=== PATIENT | female | born 1975 | race Caucasian/White ===

== ENCOUNTER 2016-10-03 02:10 | Emergency (ER) | payer MEDICAID ==
[2016-03-15 02:38] VITALS: BMI 34.5
[~2016-10-03 02:10] MED LIST: ACETAMINOPHEN325 MG NG; ACETAMINOPHEN500 M1 PO; DEPAKOTE500 MG PO; DESERYL100 MG PO; ELAVIL75 MG PO; LISINOPRIL5 MG PO; NORCO 7.5/325 T1 TA1 PO; NUCYNTA50 MG PO; PLAVIX75 MG PO; ROBAXIN-750750 MG PO; SYNTHROID25 MCG PO; VITAMIN B-2100 MG PO; ZANAFLEX4 MG PO
== END 2016-10-03 03:29 | disposition home or self-care (01) ==
LOC: D.ER 02:10
DX: M54.5 Low back pain (principal); F17.200 Nicotine dependence, unspecified, uncomplicated

== ENCOUNTER 2016-11-07 16:57 | Emergency (ER) | payer MEDICAID ==
[2016-03-15 02:38] VITALS: BMI 34.5
[2016-11-07 18:55] LABS: APPEARANCE HAZY (CLEAR); BILIRUBIN NEGATIVE (NEGATIVE); COLOR YELLOW (YELLOW); GLUCOSE NEGATIVE (NEGATIVE); KETONE NEGATIVE (NEGATIVE); LEUKOCYTE ESTERASE 2+ (NEGATIVE); NITRITE NEGATIVE (NEGATIVE); PROTEIN NEGATIVE (NEGATIVE); SPECIFIC GRAVITY 1.005 (1.005-1.020); UROBILINOGEN NORMAL (NORMAL)
[2016-11-07 18:56] LABS: BACTERIA FEW /hpf (NONE SEEN); EPITHELIAL CELLS 0-5 /hpf (0-5); RED CELLS - URINE 0-5 /hpf (0-5)
[2016-11-07 19:11] LABS: BASOPHILS 0.3 % (0.0-2.0); EOSINOPHILS 1.2 % (0-7); HEMATOCRIT 29.6 % (36.0-48.0); IMMATURE GRANULOCYTES 0.2 % (0-5); LYMPHOCYTES 42.9 % (15-50); MCH 33.8 pg (26.0-34.0); MCHC 33.8 g/dL (31.0-37.0); MONOCYTES 11.6 % (2-11); NEUTROPHILS 43.8 % (40-80); RBC 2.96 10x6/uL (4.00-5.40); RDW 15.1 % (11.5-14.5); WBC 5.9 10x3/uL (4.8-10.8)
[2016-11-07 19:13] LABS: MEAN PLATELET VOLUME 13.1 fL (7.4-10.4); PLATELET COUNT 79 10x3/uL (130-400)
[2016-11-07 19:24] LABS: ALBUMIN 3.5 g/dL (3.4-5.0); ANION GAP 16.7 mmol/L (8-16); BILIRUBIN - TOTAL 0.24 mg/dL (0.2-1.3); CALCIUM 8.8 mg/dL (8.5-10.1); CARBON DIOXIDE 25.5 mmol/L (21.0-32.0); CREATININE - SERUM 0.9 mg/dL (0.6-1.3); POTASSIUM - SERUM 3.2 mmol/L (3.5-5.1); PROTEIN - SERUM 7.3 g/dL (6.4-8.2)
[2016-11-07 19:34] LABS: PLATELET ESTIMATE INCREASED
== END 2016-11-07 20:10 | disposition home or self-care (01) ==
LOC: D.ER 16:57
PROVIDERS: Emergency Medicine
DX: R10.9 Unspecified abdominal pain (principal); R11.10 Vomiting, unspecified; R51 Headache; N39.0 Urinary tract infection, site not specified

== ENCOUNTER 2017-01-04 17:50 | Emergency (ER) | payer MEDICAID ==
[2016-03-15 02:38] VITALS: BMI 34.5
[2017-01-04 20:31] LABS: BASOPHILS 0.3 % (0.0-2.0); EOSINOPHILS 1.9 % (0-7); HEMATOCRIT 33.1 % (36.0-48.0); HEMOGLOBIN 11.2 g/dL (12-16); IMMATURE GRANULOCYTES 0.1 % (0-5); LYMPHOCYTES 45.3 % (15-50); MCH 36.2 pg (26.0-34.0); MCHC 33.8 g/dL (31.0-37.0); MCV 107.1 fL (80.0-100.0); MEAN PLATELET VOLUME 11.3 fL (7.4-10.4); MONOCYTES 9.5 % (2-11); NEUTROPHILS 42.9 % (40-80); RBC 3.09 10x6/uL (4.00-5.40); RDW 15.7 % (11.5-14.5)
[2017-01-04 20:32] LABS: PLATELET COUNT 152 10x3/uL (130-400)
[2017-01-04 20:49] LABS: ALBUMIN 3.3 g/dL (3.4-5.0); ANION GAP 18.2 mmol/L (8-16); BILIRUBIN - TOTAL 0.27 mg/dL (0.2-1.3); CALCIUM 8.6 mg/dL (8.5-10.1); CARBON DIOXIDE 20.8 mmol/L (21.0-32.0); PROTEIN - SERUM 7.5 g/dL (6.4-8.2)
== END 2017-01-04 21:38 | disposition home or self-care (01) ==
LOC: D.ER 17:50
PROVIDERS: Nurse Practitioner Family
DX: R51 Headache (principal); E86.0 Dehydration; R11.10 Vomiting, unspecified; Z95.0 Presence of cardiac pacemaker

== ENCOUNTER 2017-01-24 14:31 | Emergency (ER) | payer MEDICAID ==
[2016-03-15 02:38] VITALS: BMI 34.5
== END 2017-01-24 16:22 | disposition home or self-care (01) ==
LOC: D.ER 14:31
DX: T22.00XA Burn of unspecified degree of shoulder and upper limb, except wrist and hand, unspecified site, initial encounter (principal); X08.8XXA Exposure to other specified smoke, fire and flames, initial encounter; Y93.89 Activity, other specified; Y92.89 Other specified places as the place of occurrence of the external cause; Z95.0 Presence of cardiac pacemaker

== ENCOUNTER 2017-02-07 00:20 | Observation (INO) | payer MEDICAID ==
[~2017-02-07] VITALS: Ht 162.6 cm; Wt 81.4 kg
--- NOTE | ~2017-02-07 | OP ---
PATIENT NAME: TIANA MAC MEDICAL RECORD: [id number] :75 LOCATION:D.M2 D.2120 ADMISSION DATE:02/07/17 SURGEON: RUBEN LÓPEZ MD DATE OF OPERATION: 02/07/2017 PROCEDURES: 1. Left heart catheterization. 2. Selective coronary angiography. 3. Left ventriculogram. PROCEDURE IN DETAIL: After informed consent was obtained and after detailed explanation of risks, benefits as well as alternative therapies, the patient elected to proceed with angiogram. The right femoral area was prepped and draped in normal sterile fashion. The right femoral artery was cannulated via modified Seldinger technique with placement of 5-Kyrgyz sheath. All catheters exchanged through this sheath. FINDINGS: Left ventriculogram was performed in standard 30-degree VILLEDA view, reveals good cardiac wall motion throughout all segments. Overall ejection fraction estimated at 60%. SELECTIVE CORONARY ANGIOGRAPHY: Left main, left anterior descending, left circumflex, and right coronary artery are all smooth-walled vessels with no angiographic evidence of coronary artery disease. OVERALL IMPRESSION: 1. No angiographic evidence of coronary artery disease. 2. Normal left heart pressures. 3. Normal left ventricular systolic function. Chest pain is noncardiac in etiology. No further cardiac workup needs to be ascertained. TRANSINT:[id number] Voice Confirmation ID: [id number] DOCUMENT ID: [id number] RUBEN LÓPEZ MD CC: [id number] DICTATION DATE: 02/07/17 1139 WET SUIT GLUER: 02/07/17 [address] [facility] [address] [place] [address]
--- NOTE | ~2017-02-07 | HEMODYNAMI ---
PATIENT:TIANA MAC MEDICAL RECORD: [id number] : 75 LOCATION:[facility].212 ADMISSION DATE: 02/07/17 Generatedon:02/07/201711:43 Patient name: TIANA MAC Patient #: [id number] SSN: D OB: 1975 Date of study: 02/07/2017 Page: Of Hemodynamic Procedure Report Patient Data Patient Demographics Procedure consent was obtained First Name: TIANA Gender: Female Last Name: ESTEFANIA : 1975 Middle Initial: L Age: 41 year(s) Patient #: [id number] Race: Additional ID: [id number] Contact details [address]: [address] [place] [address] State: [place] City: [place] Zip code: [address] Past Medical History Allergies Allergen Reaction Date Comments Reported Other allergy 02/07/2017 TRAMADOL, ROCEPHEN, TOPICAL PATCHES, MACROBID CIPRO, COMPAZINE Sulfa drugs 02/07/2017 Other allergy 02/07/2017 DILAUDID, FENTANYL Admission Admission Data Admission Date: 02/07/2017 Admission Time: 3:56 Room #: [facility] Height (in.): 64 BSA: 1.87 (m2) Height (cm.): 162.56 BMI: 30.81 (kg/m2) Weight (lbs.): 179.5 Weight (kg.): 81.42 Lab Results Lab Result Date: 02/07/2017 Lab Result Time: 0:00 Biochemistry Name Units Result Min Max BUN mg/dl 9 --(*---)-- 7 18 CK-MB ng/ml 0.1 --(*---)-- 0 3.6 Creatinine mg/dl 1.1 --(--*-)-- 0.6 1.3 Creatinine l 24 --(*---)-- 21 215 Kinase Troponin l ng/ml 0.017 --(-*--)-- 0 0.06 CBC Name Units Result Min Max Hemoglobin g/dl 12.6 -*(----)-- 13.5 17.5 Procedure Procedure Types Cath Procedure Diagnostic Procedure C [facility] w/Coronaries Procedure Description Procedure Date Procedure Date: 02/07/2017 Procedure Start Time: 11:27 Procedure End Time: 11:35 Procedure Staff Name Function Chetan Ferguson MD Performing Physician Hany Soto RT Scrub Merry Kendall RN Nurse Griffin Briggs RT Monitor Procedure Data Cath Procedure Fluoroscopy Diagnostic fluoroscopy Total fluoroscopy Time: 2.3 time: 2.3 min min Diagnostic fluoroscopy Total fluoroscopy dose: 280 dose: 280 mGy mGy Contrast Material Contrast Material Type Amount (ml) Isovue 300 44 Entry Location Entry Primary Successful Side Size Upsize Upsize Entry Closure Palencia ccessful Closure Location (Fr) 1 (Fr) 2 (Fr) Remarks Device Remarks Radial Right 6 Fr Mechanical artery Short Compression Diagnostic catheters Device Type Used For End Catheter Placement Terumo 5Fr Clinton 110cm LV Angiography catheter Procedure Complications No complications Procedure Medications Medication Administration Route Dosage Oxygen NC 2 l/min Heparin Flush Bag added to field 2 bags (1000units/500ml NS) Lidocaine 2% added to field 20 Radial Cocktail added to field 1 syringe (Verapomil 2mg/Nitro 400mcg/Heparin 1500units) Refer to Anesthesia Notes for Sedation Medications Radial Cocktail I.A. 1 syringe (Verapomil 2mg/Nitro 400mcg/Heparin 1500units) Hemodynamics Rest BSA: 1.87 (m2) HGB: 12.6 (g/dl) O2 Consumption: Estimated: 192.7 (ml/min) O2 Con sumption indexed: Estimated:103.05 (ml/min/m) Heart Rate: 75 (bpm) Snapshots Pre Cath Intra NCS Post Cath Vital Signs Time Heart Resp SPO2 NIBP (mmHg) Rhythm Pain Sedation Rate (ipm) (%) Status Level (bpm) 11:07:25 81 21 100 131/92(119) NSR 0 (11) 10(A) , No pain 11:11:39 69 20 100 137/84(103) NSR 0 (11) 10(A) , No pain 11:15:49 78 18 100 128/90(112) NSR 0 (11) 10(A) , No pain 11:19:59 79 17 100 128/88(106) NSR 0 (11) 10(A) , No pain 11:24:09 75 16 95 96/59(76) NSR 0 (11) 10(A) , No pain 11:28:14 73 16 97 86/57(68) NSR 0 (11) 6(A) , No pain 11:32:28 78 16 99 82/41(58) NSR 0 (11) 6(A) , No pain 11:37:19 79 16 98 79/56(67) NSR 0 (11) 6(A) , No pain 11:39:30 76 16 96 88/60(74) NSR 0 (11) 9(A) , No pain Medications Time Medication Route Dose Verified Delivered Reason Notes Effectiveness by by 11:10:04 Oxygen NC 2 l/min Chetan Sousa Per Marty Kendall RN physician 11:10:15 Heparin Flush added 2 bags Chetan Benton used for Bag to Marty Ferguson MD procedure (1000units/500ml field NS) 11:10:24 Lidocaine 2% added 20ml Chetan Benton used for to vial Marty Ferguson MD procedure field 11:10:32 Radial Cocktail added 1 Chetan Benton used for (Verapomil to syringe Marty Ferguson MD procedure 2mg/Nitro field 400mcg/Heparin 1500units) 11:10:48 Refer to Chetan Benton for sedation Anesthesia Notes Marty Ferguson MD for Sedation Medications 11:28:05 Radial Cocktail I.A. 1 Chetan Benton for (Verapomil syringe Marty Ferguson MD vasodilation 2mg/Nitro 400mcg/Heparin 1500units) Procedure Log Time Note 10:26:23 ACC Patient presents with Stable Angina CCS Anginal Class 1--Ordinary physical activity does not cause angina, angina occurs with strenuos, rapid, or prolonged activity.. 10:26:25 ACC Patient presents with Unstable Angina CCS Anginal Class 3--Marked limitation of physical activity, angina occurs with ordinary activity.. 10:26:27 Diagnostic Cath status Urgent 10:36:49 Griffin Briggs RT(R) sent for patient. Start room use. 10:36:51 Time tracking: Regular hours 10:36:55 Plan of Care:Hemodynamics will remain stable., Cardiac rhythm will remain stable., Comfort level will be maintained., Respiratory function will remain adequate., Patient/ family verbilizes understanding of procedure., Procedure tolerated without complication., Recovers from procedure without complications.. 10:59:18 Patient received from PCU to CCL 2 Alert and oriented. Tansferred to table in Supine position. 10:59:19 Warm blankets applied, and ricardo hugger turned on for patient comfort. 10:59:20 Correct patient and procedure confirmed by team. 10:59:21 Signed procedure consent form obtained from patient. 10:59:21 ECG and BP/O2 sat monitors applied to patient. 11:06:24 Vital chart was started 11:06:25 Baseline sample Acquired. 11:06:44 Rhythm: sinus rhythm 11:06:45 Full Disclosure recording started 11:07:04 H&P Date Dictated: 02/07/2017 Within 30 days and on chart.. 11:07:05 Pre-procedure instructions explained to patient. 11:07:06 Pre-op teaching completed and patient verbalized understanding. 11:07:08 Family in patients room. 11:07:09 Patient NPO since Midnight. 11:08:11 Patient allergic to Other allergyTRAMADOL, ROCEPHEN, TOPICAL PATCHES, MACROBID CIPRO, COMPAZINE 11:08:29 Patient allergic to Sulfa drugs 11:09:16 Patient allergic to Other allergyDILAUDID, FENTANYL 11:09:24 Is the patient allergic to Iodine/contrast media? No. 11:09:30 Is patient on blood thinner?No 11:09:31 Patient diabetic? No. 11:09:32 ----Pre-sedation anethsthesia assessment.---- 11:09:35 Previous problem with sedation/anesthesia? No ? 11:09:36 Snore? No 11:09:38 Sleep apnea? No 11:09:39 Deviated septum? No 11:09:40 Opens mouth fully? Yes 11:09:41 Sticks out tongue? Yes 11:09:43 Airway obstruction? No ? 11:09:50 Dentures? No NO TEETH 11:10:04 Oxygen 2 l/min NC was administered by Merry Kendall RN; Per physician; 11:10:15 Heparin Flush Bag (1000units/500ml NS) 2 bags added to field was administered by Chetan Ferguson MD; used for procedure; 11:10:24 Lidocaine 2% 20ml vial added to field was administered by Chetan Ferguson MD; used for procedure; 11:10:32 Radial Cocktail (Verapomil 2mg/Nitro 400mcg/Heparin 1500units) 1 syringe added to field was administered by Chetan Ferguson MD; used for procedure; 11:10:48 Refer to Anesthesia Notes for Sedation Medications was administered by Chetan Ferguson MD; for sedation; 11:14:41 Pre procedure: right dorsailis pedis pulse 2+ Normal; easily identifiable; not easily obliterated 11:14:45 Modified Maximo's test Ulnar > 7 seconds. 11:14:50 Patient pain scale 4/10 CP. 11:14:58 IV patent on arrival in Rt subclavian with 0.9% NaCl at 10ml/hr. 11:15:52 Lab Result : BUN 9 mg/dl 11:15:52 Lab Result : Creatinine 1.1 mg/dl 11:15:52 Lab Result : Creatinine Kinase 24 l 11:15:52 Lab Result : CK-MB 0.1 ng/ml 11:15:52 Lab Result : Troponin l 0.017 ng/ml 11:15:52 Lab Result : Hemoglobin 12.6 g/dl 11:15:56 Lab results completed and on chart. 11:16:01 Right Radial & Right Groin area was prepped with chlora-prep and draped in sterile fashion 11:16:02 Alarms reviewed by R. N. 11:16:02 Sharps counted by scrub and verified by R.N. 11:16:25 Use device set Radial Dx 11:16:26 Acist Syringe opened to sterile field. 11:16:26 Medline Cath Pack opened to sterile field. 11:16:26 Bag Decanter opened to sterile field. 11:16:27 Terumo 6Fr Slender Glidesheath opened to sterile field. 11:16:27 St Walker 260cm J .035 wire opened to sterile field. 11:16:28 Acist Hand Control opened to sterile field. 11:16:28 Acist Manifold opened to sterile field. 11:16:28 Tegaderm 4 x 4 opened to sterile field. 11:16:29 MBrace Wrist Support opened to sterile field. 11:20:30 Physician paged 11:20:54 Patient Height : 162.56 cm 11:20:59 Patient Weight : 81.42 kg 11::22 Zero performed for pressure channel P1 11::06 --------ALL STOP TIME OUT------ 11:24:07 Final Timeout: patient, procedure, and site verified with staff and physician. All members of the team are in agreement. 11:24:11 Right Radial site verified by team. 11:24:14 Physical assessment completed. ASA score P 2 - A patient with mild systemic disease as per Chetan Ferguson MD. 11::18 Sedation plan: IV Moderate Sedation Versed, Fentanyl 11::18 Procedure started. 11:27:35 Local anesthetic to right radial artery with Lidocaine 2% by Chetan Ferguson MD.INITIAL ACCESS ONLY 11:27:47 A 6 Fr Short sheath was inserted into the Right Radial artery 11:28:05 Radial Cocktail (Verapomil 2mg/Nitro 400mcg/Heparin 1500units) 1 syringe I.A. was administered by Chetan Ferguson MD; for vasodilation; 11::23 A Terumo 5Fr Clinton 110cm catheter was advanced over the wire and used for LV Angiography. 11:28:59 LV angiography performed. 11:29:01 LV gram done using VILLEDA 11:29:16 EF : 60 % 11::21 Injector settings: Ml/sec: 7, Volume: 15, 11:29:29 RCA angiography performed. 11:30:09 Catheter removed. 11:30:18 Medtronic Launcher 5Fr EBU 3.5 guide catheter opened to sterile field. 11:30:19 LCA angiography performed. 11:30:58 Terumo TR Band Standard opened to sterile field. 11:32:13 Catheter removed. 11:32:20 Contrast amount:Isovue 300 44ml. 11:32:26 Sheath removed intact; hemostasis achieved with Mechanical Compression to the Right Radial artery. 11:32:28 Procedure ended.(Physican Out) 11:32:39 Fluoroscopy time 02.30 minutes. 11:33:00 Flurop Dose total: 280 11:33:00 Fluoroscopy dose: 280 mGy 11:33:02 Sharps counted by scrub and verified by R.N. 11:33:04 TR band inflated with 10cc of air. 11:33:06 Insertion/operative site no bleeding no hematoma. 11:33:21 Post right radial artery:stable 11:33:58 Post Procedure Pulses reassessed and unchanged 11:34:00 Post procedure rhythm: sinus rhythm 11:34:01 Post procedure instruction explained to patient.Patient verbalizes understanding. 11:35:37 Procedure and supply charges have been captured, reviewed, submitted and are correct. 11:35:41 Procedure Complication : No complications 11:35:43 Vital chart was stopped 11:35:44 See physician's report for complete and final results. 11:35:50 Report given to PCU. 11:35:53 Patient transfered to PCU with Bed. 11:35:55 Procedure ended. 11:35:55 Full Disclosure recording stopped 11:35:59 End room use (Document Last) Device Usage Item Name Manufacture Quantity Catalog Hospital Part Current Minimal Lot# / Number Charge Number Stock Stock Serial# Code Acist Acist 1 [id number] [id number] 053456 093390 20 Syringe Medical Systems Inc Medline Cardinal 1 [id number] 64313 682203 5 Cath Pack Health Bag Microtek 1 2001S 638249 91949 943211 5 [employer] Terumo 6Fr Terumo 1 [id number] 405921 804289 774696 [address] Walker St Walker 1 122837 612370 234797 503627 30 260cm J .035 wire Acist Hand Acist 1 65274 478593 630043 865605 5 Control Medical Systems Inc Acist Acist 1 31505 202391 024925 709463 5 Manifold Medical Systems Inc Tegaderm 4 3M 1 1626W 819534 129764 563836 5 x 4 MBrace Advanced 1 140-0250-00 846502 62497 403593 5 Wrist Vascular Support Dynamics Terumo 5Fr Terumo 1 06-1696 069124 623364 288717 5 Clinton 110cm catheter Medtronic Medtronic 1 [id number] 815317 523157 721949 1 Launcher 5Fr EBU 3.5 guide catheter Terumo TR Terumo 1 [id number] 680038 551217 637323 40 Band Standard Signature Audit [place] Stage Time Signature Unsigned Intra-Procedure 02/07/2017 Griffin Briggs 11:43:34 AM RT(R) Signatures Monitor : Griffin Briggs RT Signature : Date : Time : [place] [id number] [place] [address]
--- NOTE | ~2017-02-07 | DS ---
PATIENT:TIANA MAC :75 MEDICAL RECORD: [id number] DISCHARGE SUMMARY ADMISSION DATE: 02/07/17 DISCHARGE DATE: 02/07/17 DATE OF SERVICE: 02/07/2017 DISCHARGE DIAGNOSES: 1. Chest pain of unknown etiology. 2. Normal cardiac catheterization. 3. Sick sinus syndrome. 4. Status post pacemaker. HOSPITAL COURSE: Ms. Mac presents with chest pain; however, cardiac catheterization is normal. Chest pain is noncardiac in etiology. Pacemaker is interrogated, no dysrhythmias were present. She was discharged home with a followup with [facility] within 6 months for reevaluation of the pacemaker. TRANSINT:[id number] Voice Confirmation ID: [id number] DOCUMENT ID: [id number] RUBEN LÓPEZ MD CC: [id number] DICTATION DATE: 02/07/17 1138 BROADCAST OPERATIONS MANAGER: 02/08/17 0200 DIS IN 02/07/17 [place] [id number] [place] [id number]
[2017-02-07 01:03] LABS: BASOPHILS 0.3 % (0-2); EOSINOPHILS 0.7 % (0-7); HEMATOCRIT 36.6 % (36.0-48.0); HEMOGLOBIN 12.6 g/dL (12-16); IMMATURE GRANULOCYTES 0.2 % (0-5); LYMPHOCYTES 37.5 % (15-50); MCH 35.5 pg (26.0-34.0); MCHC 34.4 g/dL (31.0-37.0); MCV 103.1 fL (80.0-100.0); MEAN PLATELET VOLUME 11.1 fL (7.4-10.4); MONOCYTES 9.5 % (2-11); NEUTROPHILS 51.8 % (40-80); PLATELET COUNT 285 10x3/uL (130-400); RBC 3.55 10x6/uL (4.00-5.40); RDW 12.9 % (11.5-14.5); WBC 9.3 10x3/uL (4.8-10.8)
[2017-02-07 01:18] LABS: ALBUMIN 3.2 g/dL (3.4-5.0); ALKALINE PHOSPHATASE 144 U/L (46-116); ALT (SGPT) 26 U/L (10-68); BILIRUBIN - TOTAL 0.23 mg/dL (0.2-1.3); CALC OSMOLALITY 281 mosm/kg (275-300); CALCIUM 8.6 mg/dL (8.5-10.1); CARBON DIOXIDE 26.5 mmol/L (21.0-32.0); CHLORIDE - SERUM 107 mmol/L (98-107); CREATININE - SERUM 1.1 mg/dL (0.6-1.3); GLUCOSE 100 mg/dL (74-106); POTASSIUM - SERUM 3.4 mmol/L (3.5-5.1); PROTEIN - SERUM 7.5 g/dL (6.4-8.2); SODIUM 142 mmol/L (136-145); UREA NITROGEN 9 mg/dL (7-18); eGFR NON AFRICAN AMERICAN 58 mL/min (90-120)
[2017-02-07 01:27] LABS: CHOL - HDL RATIO 4.2 ratio (2.3-4.1); CHOLESTEROL, TOTAL 181 mg/dL (0-200); CKMB 0.2 U/L (0.0-3.6); CREATINE KINASE 23 UL (21-215); HDL CHOLESTEROL 43 mg/dL (32-96); LDL CHOLESTEROL 99 mg/dL (0-100); LDL-HDL RATIO 2.3 ratio (1.5-3.5); MAGNESIUM - SERUM 1.9 mg/dL (1.8-2.4); TRIGLYCERIDE 197 mg/dL (30-200)
[2017-02-07 01:30] LABS: TROPONIN-I < 0.017 ng/mL (0.000-0.060)
[2017-02-07 04:36] VITALS: BP 130/87; Ht 162.6 cm; Wt 81.4 kg
[2017-02-07] MEDS ORDERED: LOPRESSOR25 MG PO (04:43)
[2017-02-07] MEDS ORDERED: ATARAX 25 MG TA25 MG PO (04:45)
[2017-02-07 05:01] VITALS: BP 130/87
[2017-02-07 05:46] LABS: CKMB 0.1 U/L (0.0-3.6); CREATINE KINASE 24 UL (21-215); TROPONIN-I < 0.017 ng/mL (0.000-0.060)
[2017-02-07 07:53] VITALS: BP 119/86
[2017-02-07 09:55] LABS: BASOPHILS 0.4 % (0-2); EOSINOPHILS 1.3 % (0-7); HEMATOCRIT 36.1 % (36.0-48.0); IMMATURE GRANULOCYTES 0.1 % (0-5); LYMPHOCYTES 46.5 % (15-50); MCH 34.8 pg (26.0-34.0); MCHC 33.2 g/dL (31.0-37.0); MCV 104.6 fL (80.0-100.0); MEAN PLATELET VOLUME 11.5 fL (7.4-10.4); MONOCYTES 9.7 % (2-11); RBC 3.45 10x6/uL (4.00-5.40); RDW 13.2 % (11.5-14.5); WBC 8.4 10x3/uL (4.8-10.8)
[2017-02-07 09:59] LABS: PLATELET COUNT 224 10x3/uL (130-400)
[2017-02-07 10:31] LABS: CALC OSMOLALITY 283 mosm/kg (275-300); CALCIUM 8.9 mg/dL (8.5-10.1); CARBON DIOXIDE 24.7 mmol/L (21.0-32.0); CHLORIDE - SERUM 109 mmol/L (98-107); CKMB 0.2 U/L (0.0-3.6); CREATINE KINASE 24 UL (21-215); GLUCOSE 101 mg/dL (74-106); POTASSIUM - SERUM 3.8 mmol/L (3.5-5.1); SODIUM 143 mmol/L (136-145); TROPONIN-I < 0.017 ng/mL (0.000-0.060); UREA NITROGEN 11 mg/dL (7-18); eGFR NON AFRICAN AMERICAN 65 mL/min (90-120)
--- NOTE | 2017-02-07 11:07 | NUR ---
LEAVING FOR REINFORCED STEEL PLACING SUPERVISOR BY BED.
--- NOTE | 2017-02-07 11:53 | NUR ---
BACK FROM REFURBISH TECHNICIAN. RIGHT WRST STABLE WITH TR BAND INTACT. METRONICS AT BS ASSESING PACEMAKER. WILL CONT. PLAN OF CARE.
--- NOTE | 2017-02-07 14:38 | NUR ---
FEMSTOP DCD WITHOUT BLEEDING OR HEMATOMA NOTED.
--- NOTE | 2017-02-07 14:42 | NUR ---
IV AND TELEMETRY DCD. DC PLANS GIVEN. UNDERSTANDING VOICED. ESCORTED TO CAR BY W/C.
== END 2017-02-07 14:50 | disposition home or self-care (01) ==
LOC: D.ER 00:20 → D.M2 03:56 → OBSVTIME 03:56 → D.M2 14:50
PROVIDERS: Emergency Medicine; ADMIT Internal Medicine Interventional Cardiology
DX: R07.89 Other chest pain (principal); I10 Essential (primary) hypertension; Z95.0 Presence of cardiac pacemaker; K74.60 Unspecified cirrhosis of liver; Z87.891 Personal history of nicotine dependence

== ENCOUNTER 2017-03-14 17:18 | Emergency (ER) | payer MEDICAID ==
[2017-02-07 04:36] VITALS: BMI 30.8
[~2017-03-14 17:18] MED LIST changes: +ATARAX 25 MG TA25 MG PO; +LOPRESSOR25 MG PO
[2017-03-14 20:31] LABS: APPEARANCE CLEAR (CLEAR); BILIRUBIN NEGATIVE (NEGATIVE); COLOR YELLOW (YELLOW); GLUCOSE NEGATIVE (NEGATIVE); KETONE NEGATIVE (NEGATIVE); LEUKOCYTE ESTERASE 1+ (NEGATIVE); NITRITE NEGATIVE (NEGATIVE); PROTEIN NEGATIVE (NEGATIVE); UROBILINOGEN NORMAL (NORMAL)
[2017-03-14 20:34] LABS: BACTERIA MODERATE /hpf (NONE SEEN); RED CELLS - URINE 0-5 /hpf (0-5)
[2017-03-14 22:05] LABS: BASOPHILS 0.2 % (0-2); HEMATOCRIT 41.4 % (36.0-48.0); HEMOGLOBIN 14.1 g/dL (12-16); IMMATURE GRANULOCYTES 0.6 % (0-5); LYMPHOCYTES 33.7 % (15-50); MCH 33.8 pg (26.0-34.0); MCHC 34.1 g/dL (31.0-37.0); MCV 99.3 fL (80.0-100.0); MONOCYTES 8.2 % (2-11); NEUTROPHILS 56.3 % (40-80); RBC 4.17 10x6/uL (4.00-5.40); RDW 13.5 % (11.5-14.5); WBC 12.5 10x3/uL (4.8-10.8)
[2017-03-14 22:06] LABS: PLATELET COUNT 156 10x3/uL (130-400)
[2017-03-14 22:26] LABS: ALBUMIN 3.8 g/dL (3.4-5.0); ALKALINE PHOSPHATASE 110 U/L (46-116); ALT (SGPT) 30 U/L (10-68); BILIRUBIN - TOTAL 0.35 mg/dL (0.2-1.3); CALC OSMOLALITY 288 mosm/kg (275-300); CALCIUM 9.8 mg/dL (8.5-10.1); CARBON DIOXIDE 22.4 mmol/L (21.0-32.0); CHLORIDE - SERUM 110 mmol/L (98-107); CREATININE - SERUM 0.7 mg/dL (0.6-1.3); GLUCOSE 84 mg/dL (74-106); POTASSIUM - SERUM 4.9 mmol/L (3.5-5.1); PROTEIN - SERUM 8.7 g/dL (6.4-8.2); SODIUM 145 mmol/L (136-145); UREA NITROGEN 14 mg/dL (7-18); eGFR NON AFRICAN AMERICAN > 90 mL/min (90-120)
== END 2017-03-14 23:39 | disposition home or self-care (01) ==
LOC: D.ER 17:18
PROVIDERS: Emergency Medicine
DX: N39.0 Urinary tract infection, site not specified (principal)

== ENCOUNTER 2017-03-19 22:17 | Emergency (ER) | payer MEDICAID ==
[2017-02-07 04:36] VITALS: BMI 30.8
[2017-03-19 22:54] LABS: BASOPHILS 0.2 % (0-2); EOSINOPHILS 0.8 % (0-7); HEMATOCRIT 47.6 % (36.0-48.0); HEMOGLOBIN 15.6 g/dL (12-16); IMMATURE GRANULOCYTES 0.3 % (0-5); LYMPHOCYTES 29.9 % (15-50); MCH 33.4 pg (26.0-34.0); MCHC 32.8 g/dL (31.0-37.0); MCV 101.9 fL (80.0-100.0); MEAN PLATELET VOLUME 12.3 fL (7.4-10.4); MONOCYTES 5.4 % (2-11); NEUTROPHILS 63.4 % (40-80); PLATELET COUNT 215 10x3/uL (130-400); RBC 4.67 10x6/uL (4.00-5.40); RDW 13.5 % (11.5-14.5); WBC 11.9 10x3/uL (4.8-10.8)
[2017-03-19 22:56] LABS: ANION GAP 15.8 mmol/L (8-16); BILIRUBIN - TOTAL 0.25 mg/dL (0.2-1.3); CALCIUM 9.8 mg/dL (8.5-10.1); CREATININE - SERUM 0.9 mg/dL (0.6-1.3); POTASSIUM - SERUM 3.8 mmol/L (3.5-5.1); PROTEIN - SERUM 9.3 g/dL (6.4-8.2)
[2017-03-20 00:19] LABS: APPEARANCE CLEAR (CLEAR); BILIRUBIN NEGATIVE (NEGATIVE); COLOR YELLOW (YELLOW); GLUCOSE NEGATIVE (NEGATIVE); KETONE NEGATIVE (NEGATIVE); LEUKOCYTE ESTERASE NEGATIVE (NEGATIVE); NITRITE NEGATIVE (NEGATIVE); PROTEIN TRACE mg/dL (NEGATIVE); SPECIFIC GRAVITY 1.015 (1.005-1.020); UROBILINOGEN NORMAL (NORMAL)
[2017-03-20 00:20] LABS: BACTERIA NONE SEEN /hpf (NONE SEEN); EPITHELIAL CELLS 0-5 /hpf (0-5); RED CELLS - URINE 0-5 /hpf (0-5); WHITE CELLS - URINE 0-5 /hpf (0-5)
== END 2017-03-20 00:45 | disposition home or self-care (01) ==
LOC: D.ER 22:17
PROVIDERS: Emergency Medicine
DX: R10.9 Unspecified abdominal pain (principal)

== ENCOUNTER 2017-05-29 20:54 | Emergency (ER) | payer MEDICAID ==
[2017-02-07 04:36] VITALS: BMI 30.8
[2017-05-29 21:59] LABS: BASOPHILS 0.3 % (0-2); EOSINOPHILS 0.4 % (0-7); HEMATOCRIT 42.7 % (36.0-48.0); HEMOGLOBIN 15.1 g/dL (12-16); IMMATURE GRANULOCYTES 0.3 % (0-5); LYMPHOCYTES 34.8 % (15-50); MCH 33.5 pg (26.0-34.0); MCHC 35.4 g/dL (31.0-37.0); MCV 94.7 fL (80.0-100.0); MONOCYTES 9.8 % (2-11); NEUTROPHILS 54.4 % (40-80); RBC 4.51 10x6/uL (4.00-5.40); RDW 13.7 % (11.5-14.5); WBC 10.1 10x3/uL (4.8-10.8)
[2017-05-29 22:06] LABS: PLATELET COUNT 294 10x3/uL (130-400)
[2017-05-29 22:15] LABS: ALBUMIN 3.8 g/dL (3.4-5.0); BILIRUBIN - TOTAL 0.2 mg/dL (0.2-1.3); CALCIUM 9.6 mg/dL (8.5-10.1); CARBON DIOXIDE 24.8 mmol/L (21.0-32.0); CREATININE - SERUM 1.1 mg/dL (0.6-1.3); PROTEIN - SERUM 8.4 g/dL (6.4-8.2)
[2017-05-29 22:23] LABS: POTASSIUM - SERUM 2.8 mmol/L (3.5-5.1)
[2017-05-29 22:23] LABS: APPEARANCE HAZY (CLEAR); BILIRUBIN NEGATIVE (NEGATIVE); COLOR YELLOW (YELLOW); GLUCOSE NEGATIVE (NEGATIVE); KETONE MODERATE mg/dL (NEGATIVE); LEUKOCYTE ESTERASE 2+ (NEGATIVE); NITRITE POSITIVE (NEGATIVE); PROTEIN 1+ mg/dL (NEGATIVE); UROBILINOGEN NORMAL (NORMAL)
[2017-05-29 22:24] LABS: BACTERIA MANY /hpf (NONE SEEN); EPITHELIAL CELLS 0-5 /hpf (0-5); RED CELLS - URINE 0-5 /hpf (0-5); WHITE CELLS - URINE >50 /hpf (0-5)
== END 2017-05-29 23:52 | disposition home or self-care (01) ==
LOC: D.ER 20:54
PROVIDERS: Nurse Practitioner Acute Care
DX: N39.0 Urinary tract infection, site not specified (principal); E87.6 Hypokalemia

== ENCOUNTER → 2017-06-04 13:20 | Outpatient (CLI) | payer MEDICAID ==
[2017-02-07 04:36] VITALS: BMI 30.8
[2017-06-04 13:52] LABS: INR 0.82 (0.85-1.17); PROTIME 11.1 SECONDS (11.6-15.0)
== END | disposition home or self-care (01) ==
LOC: D.LAB 13:20
PROVIDERS: Neurological Surgery
DX: D69.9 Hemorrhagic condition, unspecified (principal)

== ENCOUNTER 2017-07-04 08:57 | Emergency (ER) | payer MEDICAID ==
[2017-02-07 04:36] VITALS: BMI 30.8
[2017-07-04 09:36] LABS: BASOPHILS 0.2 % (0-2); EOSINOPHILS 0 % (0-7); HEMATOCRIT 41.9 % (36.0-48.0); HEMOGLOBIN 14.9 g/dL (12-16); IMMATURE GRANULOCYTES 1.1 % (0-5); LYMPHOCYTES 28.2 % (15-50); MCH 32.9 pg (26.0-34.0); MCHC 35.6 g/dL (31.0-37.0); MCV 92.5 fL (80.0-100.0); MEAN PLATELET VOLUME 10.1 fL (7.4-10.4); MONOCYTES 6.4 % (2-11); NEUTROPHILS 64.1 % (40-80); RBC 4.53 10x6/uL (4.00-5.40); RDW 13.9 % (11.5-14.5); WBC 17.8 10x3/uL (4.8-10.8)
[2017-07-04 09:37] LABS: PLATELET COUNT 457 10x3/uL (130-400)
[2017-07-04 09:55] LABS: ALBUMIN 3.7 g/dL (3.4-5.0); ANION GAP 21.3 mmol/L (8-16); BILIRUBIN - TOTAL 0.33 mg/dL (0.2-1.3); CALCIUM 9.8 mg/dL (8.5-10.1); CARBON DIOXIDE 17.3 mmol/L (21.0-32.0); CREATININE - SERUM 1.5 mg/dL (0.6-1.3); PROTEIN - SERUM 8.1 g/dL (6.4-8.2)
[2017-07-04 10:00] LABS: POTASSIUM - SERUM 2.6 mmol/L (3.5-5.1)
[2017-07-04 10:06] LABS: APPEARANCE CLEAR (CLEAR); BILIRUBIN NEGATIVE (NEGATIVE); COLOR DK YELLOW (YELLOW); GLUCOSE NEGATIVE (NEGATIVE); KETONE NEGATIVE (NEGATIVE); NITRITE NEGATIVE (NEGATIVE); PROTEIN TRACE mg/dL (NEGATIVE); UROBILINOGEN NORMAL (NORMAL)
[2017-07-04 10:09] LABS: BACTERIA FEW /hpf (NONE SEEN); EPITHELIAL CELLS 0-5 /hpf (0-5); MUCUS <1+ /lpf (NONE SEEN); RED CELLS - URINE 0-5 /hpf (0-5)
== END 2017-07-04 13:06 | disposition home or self-care (01) ==
LOC: D.ER 08:57
PROVIDERS: Emergency Medicine
DX: E86.0 Dehydration (principal); R11.10 Vomiting, unspecified

== ENCOUNTER 2017-07-23 20:35 | Emergency (ER) | payer MEDICAID ==
[2017-02-07 04:36] VITALS: BMI 30.8
[2017-07-23 22:11] LABS: BASOPHILS 0.2 % (0-2); HEMATOCRIT 43.8 % (36.0-48.0); HEMOGLOBIN 14.5 g/dL (12-16); IMMATURE GRANULOCYTES 0.2 % (0-5); LYMPHOCYTES 41.5 % (15-50); MCH 32.6 pg (26.0-34.0); MCHC 33.1 g/dL (31.0-37.0); MCV 98.4 fL (80.0-100.0); MEAN PLATELET VOLUME 11.5 fL (7.4-10.4); MONOCYTES 7.2 % (2-11); NEUTROPHILS 49.9 % (40-80); RBC 4.45 10x6/uL (4.00-5.40); RDW 14.3 % (11.5-14.5); WBC 8.2 10x3/uL (4.8-10.8)
[2017-07-23 22:13] LABS: PLATELET COUNT 230 10x3/uL (130-400)
[2017-07-23 23:49] LABS: ALBUMIN 3.9 g/dL (3.4-5.0); ALKALINE PHOSPHATASE 167 U/L (46-116); ALT (SGPT) 39 U/L (10-68); AMYLASE - SERUM 50 U/L (25-115); CALC OSMOLALITY 281 mosm/kg (275-300); CALCIUM 9.6 mg/dL (8.5-10.1); CARBON DIOXIDE 21.2 mmol/L (21.0-32.0); CHLORIDE - SERUM 106 mmol/L (98-107); CREATININE - SERUM 0.7 mg/dL (0.6-1.3); GLUCOSE 100 mg/dL (74-106); LIPASE 250 U/L (73-393); POTASSIUM - SERUM 3.9 mmol/L (3.5-5.1); PROTEIN - SERUM 7.8 g/dL (6.4-8.2); SODIUM 142 mmol/L (136-145); eGFR NON AFRICAN AMERICAN > 90 mL/min (90-120)
[2017-07-23 23:54] LABS: UREA NITROGEN 9 mg/dL (7-18)
[2017-07-24 00:05] LABS: APPEARANCE HAZY (CLEAR); BILIRUBIN NEGATIVE (NEGATIVE); COLOR YELLOW (YELLOW); GLUCOSE NEGATIVE (NEGATIVE); KETONE SMALL mg/dL (NEGATIVE); NITRITE NEGATIVE (NEGATIVE); PROTEIN 1+ mg/dL (NEGATIVE); SPECIFIC GRAVITY 1.005 (1.005-1.020); UROBILINOGEN NORMAL (NORMAL)
[2017-07-24 00:06] LABS: BACTERIA MANY /hpf (NONE SEEN); EPITHELIAL CELLS 0-5 /hpf (0-5); MUCUS <1+ /lpf (NONE SEEN)
[2017-07-24 00:07] LABS: UDS - AMPHET NEGATIVE QUAL (NEGATIVE); UDS - BARB NEGATIVE QUAL (NEGATIVE); UDS - BENZO NEGATIVE QUAL (NEGATIVE); UDS - COCAINE NEGATIVE QUAL (NEGATIVE); UDS - OPIATE POSITIVE QUAL (NEGATIVE); UDS - PCP NEGATIVE QUAL (NEGATIVE); UDS - THC NEGATIVE QUAL (NEGATIVE)
== END 2017-07-24 01:22 | disposition home or self-care (01) ==
LOC: D.ER 20:35
PROVIDERS: Emergency Medicine; Nurse Practitioner Family
DX: R11.2 Nausea with vomiting, unspecified (principal); R19.7 Diarrhea, unspecified; M32.9 Systemic lupus erythematosus, unspecified; G40.909 Epilepsy, unspecified, not intractable, without status epilepticus; B19.20 Unspecified viral hepatitis C without hepatic coma; F17.200 Nicotine dependence, unspecified, uncomplicated; I10 Essential (primary) hypertension

== ENCOUNTER 2017-08-07 22:37 | Emergency (ER) | payer MEDICAID ==
[2017-02-07 04:36] VITALS: BMI 30.8
[2017-08-07 23:31] LABS: HEMOGLOBIN 13.6 g/dL (12-16); LYMPHOCYTES 40.1 % (15-50); MCH 32.6 pg (26.0-34.0); MCV 95.9 fL (80.0-100.0); NEUTROPHILS 56.4 % (40-80); PLATELET COUNT 237 10x3/uL (130-400); RBC 4.17 10x6/uL (4.00-5.40); RDW 13.4 % (11.5-14.5); WBC 10.2 10x3/uL (4.8-10.8)
[2017-08-07 23:46] LABS: ALBUMIN 3.7 g/dL (3.4-5.0); ALKALINE PHOSPHATASE 125 U/L (46-116); ALT (SGPT) 15 U/L (10-68); BILIRUBIN - TOTAL 0.32 mg/dL (0.2-1.3); CALC OSMOLALITY 281 mosm/kg (275-300); CALCIUM 9.1 mg/dL (8.5-10.1); CARBON DIOXIDE 27.8 mmol/L (21.0-32.0); CHLORIDE - SERUM 105 mmol/L (98-107); CREATININE - SERUM 0.9 mg/dL (0.6-1.3); GLUCOSE 98 mg/dL (74-106); POTASSIUM - SERUM 4.7 mmol/L (3.5-5.1); PROTEIN - SERUM 8.4 g/dL (6.4-8.2); SODIUM 142 mmol/L (136-145); UREA NITROGEN 11 mg/dL (7-18); eGFR NON AFRICAN AMERICAN 73 mL/min (90-120)
[2017-08-07 23:57] LABS: CHOLESTEROL, TOTAL 234 mg/dL (0-200); CREATINE KINASE 89 UL (21-215); HDL CHOLESTEROL 78 mg/dL (32-96); LDL CHOLESTEROL 129 mg/dL (0-100); LDL-HDL RATIO 1.7 ratio (1.5-3.5); TRIGLYCERIDE 137 mg/dL (30-200)
[2017-08-08 00:02] LABS: TROPONIN-I < 0.017 ng/mL (0.000-0.060)
== END 2017-08-08 04:50 | disposition home or self-care (01) ==
LOC: D.ER 22:37
PROVIDERS: Emergency Medicine
DX: R07.9 Chest pain, unspecified (principal); B19.20 Unspecified viral hepatitis C without hepatic coma; M32.9 Systemic lupus erythematosus, unspecified; I10 Essential (primary) hypertension

== ENCOUNTER 2017-10-18 00:39 | Emergency (ER) | payer MEDICAID ==
[2017-02-07 04:36] VITALS: BMI 30.8
[2017-10-18 01:35] LABS: BASOPHILS 0.1 % (0-2); EOSINOPHILS 1.5 % (0-7); HEMATOCRIT 38.3 % (36.0-48.0); HEMOGLOBIN 12.8 g/dL (12-16); IMMATURE GRANULOCYTES 0.3 % (0-5); MCH 31.1 pg (26.0-34.0); MCHC 33.4 g/dL (31.0-37.0); MCV 93.2 fL (80.0-100.0); MEAN PLATELET VOLUME 11.7 fL (7.4-10.4); MONOCYTES 9.2 % (2-11); NEUTROPHILS 56.9 % (40-80); RBC 4.11 10x6/uL (4.00-5.40); RDW 13.3 % (11.5-14.5); WBC 9.2 10x3/uL (4.8-10.8)
[2017-10-18 01:40] LABS: PLATELET COUNT 185 10x3/uL (130-400)
[2017-10-18 01:47] LABS: ALBUMIN 3.5 g/dL (3.4-5.0); ALKALINE PHOSPHATASE 111 U/L (46-116); ALT (SGPT) 28 U/L (10-68); BILIRUBIN - TOTAL 0.19 mg/dL (0.2-1.3); CALC OSMOLALITY 281 mosm/kg (275-300); CALCIUM 8.8 mg/dL (8.5-10.1); CARBON DIOXIDE 27.1 mmol/L (21.0-32.0); CHLORIDE - SERUM 103 mmol/L (98-107); CREATININE - SERUM 0.9 mg/dL (0.6-1.3); GLUCOSE 109 mg/dL (74-106); POTASSIUM - SERUM 4.1 mmol/L (3.5-5.1); PROTEIN - SERUM 7.9 g/dL (6.4-8.2); SODIUM 141 mmol/L (136-145); UREA NITROGEN 13 mg/dL (7-18); eGFR NON AFRICAN AMERICAN 73 mL/min (90-120)
[2017-10-18 01:57] LABS: CHOL - HDL RATIO 3.8 ratio (2.3-4.1); CHOLESTEROL, TOTAL 218 mg/dL (0-200); CKMB 0.5 U/L (0.0-3.6); CREATINE KINASE 63 UL (21-215); HDL CHOLESTEROL 58 mg/dL (32-96); LDL CHOLESTEROL 133 mg/dL (0-100); LDL-HDL RATIO 2.3 ratio (1.5-3.5); TRIGLYCERIDE 135 mg/dL (30-200); TROPONIN-I < 0.017 ng/mL (0.000-0.060)
== END 2017-10-18 03:05 | disposition home or self-care (01) ==
LOC: D.ER 00:39
PROVIDERS: Emergency Medicine
DX: R09.1 Pleurisy (principal); M32.9 Systemic lupus erythematosus, unspecified; I10 Essential (primary) hypertension

== ENCOUNTER 2018-01-12 21:47 | Emergency (ER) | payer MEDICAID ==
[2017-02-07 04:36] VITALS: BMI 30.8
[2018-01-12 22:08] LABS: APPEARANCE CLEAR (CLEAR); BILIRUBIN NEGATIVE (NEGATIVE); COLOR STRAW (YELLOW); GLUCOSE NEGATIVE (NEGATIVE); KETONE NEGATIVE (NEGATIVE); NITRITE NEGATIVE (NEGATIVE); PROTEIN NEGATIVE (NEGATIVE); SPECIFIC GRAVITY 1.005 (1.005-1.020); UROBILINOGEN NORMAL (NORMAL)
[2018-01-12 22:10] LABS: WHITE CELLS - URINE 0-5 /hpf (0-5)
[2018-01-12 22:11] LABS: RED CELLS - URINE 0-5 /hpf (0-5)
[2018-01-12 22:12] LABS: BACTERIA FEW /hpf (NONE SEEN)
[2018-01-12 22:15] LABS: BASOPHILS 0.3 % (0-2); HEMOGLOBIN 13.4 g/dL (12-16); IMMATURE GRANULOCYTES 0.1 % (0-5); LYMPHOCYTES 41.3 % (15-50); MCH 30.5 pg (26.0-34.0); MCHC 33.5 g/dL (31.0-37.0); MCV 90.9 fL (80.0-100.0); MEAN PLATELET VOLUME 10.5 fL (7.4-10.4); MONOCYTES 5.5 % (2-11); NEUTROPHILS 50.8 % (40-80); PLATELET COUNT 231 10x3/uL (130-400); RDW 12.7 % (11.5-14.5); WBC 7.1 10x3/uL (4.8-10.8)
[2018-01-12 22:28] LABS: ALBUMIN 3.5 g/dL (3.4-5.0); ANION GAP 11.4 mmol/L (8-16); BILIRUBIN - TOTAL 0.2 mg/dL (0.2-1.3); CALCIUM 8.4 mg/dL (8.5-10.1); CARBON DIOXIDE 26.2 mmol/L (21.0-32.0); POTASSIUM - SERUM 3.6 mmol/L (3.5-5.1); PROTEIN - SERUM 7.6 g/dL (6.4-8.2)
[2018-01-12 22:40] LABS: HCG SERUM NEGATIVE (NEGATIVE)
== END 2018-01-13 00:23 | disposition home or self-care (01) ==
LOC: D.ER 21:47
PROVIDERS: Emergency Medicine
DX: R10.9 Unspecified abdominal pain (principal); R11.10 Vomiting, unspecified; I10 Essential (primary) hypertension; G40.909 Epilepsy, unspecified, not intractable, without status epilepticus; F17.200 Nicotine dependence, unspecified, uncomplicated

== ENCOUNTER 2018-02-16 01:01 | Emergency (ER) | payer MEDICAID ==
[2017-02-07 04:36] VITALS: BMI 30.8
[2018-02-16 01:35] LABS: APPEARANCE HAZY (CLEAR); BACTERIA NONE SEEN /hpf (NONE SEEN); BILIRUBIN NEGATIVE (NEGATIVE); COLOR YELLOW (YELLOW); EPITHELIAL CELLS NSEEN /hpf (0-5); GLUCOSE NEGATIVE (NEGATIVE); KETONE NEGATIVE (NEGATIVE); NITRITE NEGATIVE (NEGATIVE); PROTEIN NEGATIVE (NEGATIVE); RED CELLS - URINE 0-5 /hpf (0-5); SPECIFIC GRAVITY 1.015 (1.005-1.020); UROBILINOGEN NORMAL (NORMAL)
[2018-02-16 02:30] LABS: BASOPHILS 0.4 % (0-2); EOSINOPHILS 1.3 % (0-7); HEMATOCRIT 43.5 % (36.0-48.0); HEMOGLOBIN 14.9 g/dL (12-16); IMMATURE GRANULOCYTES 0.1 % (0-5); LYMPHOCYTES 33.6 % (15-50); MCH 30.6 pg (26.0-34.0); MCHC 34.3 g/dL (31.0-37.0); MCV 89.3 fL (80.0-100.0); MEAN PLATELET VOLUME 10.9 fL (7.4-10.4); MONOCYTES 12.1 % (2-11); NEUTROPHILS 52.5 % (40-80); RBC 4.87 10x6/uL (4.00-5.40); WBC 7.2 10x3/uL (4.8-10.8)
[2018-02-16 02:38] LABS: CALC OSMOLALITY 279 mosm/kg (275-300); CHLORIDE - SERUM 106 mmol/L (98-107); CREATININE - SERUM 0.7 mg/dL (0.6-1.3); GLUCOSE 103 mg/dL (74-106); PLATELET COUNT 168 10x3/uL (130-400); POTASSIUM - SERUM 4.2 mmol/L (3.5-5.1); SODIUM 141 mmol/L (136-145); UREA NITROGEN 9 mg/dL (7-18); eGFR NON AFRICAN AMERICAN > 90 mL/min (90-120)
== END 2018-02-16 03:39 | disposition home or self-care (01) ==
LOC: D.ER 01:01
PROVIDERS: Family Medicine
DX: N39.0 Urinary tract infection, site not specified (principal); I10 Essential (primary) hypertension; G40.909 Epilepsy, unspecified, not intractable, without status epilepticus

== ENCOUNTER → 2018-03-26 07:33 | Outpatient (CLI) | payer MEDICAID ==
[2017-02-07 04:36] VITALS: BMI 30.8
[~2018-03-26 07:33] MED LIST changes: +ANTIVERT12.5 MG PO; +CARDIZEM CD120 MG PO; +CIPRO250 MG PO; +DEPAKOTE ER500 MG PO; -DESERYL100 MG PO; +FIORICET-COD 51 EACH PO; +FUROSEMIDE20 MG PO; +PERCOCET 10/3251 TA1 PO; +TRAZODONE HCL150 MG PO; +TREXIMET 85-5001 TAB PO; +ULTRACET TABLET1 TAB PO; +VISTARIL50 MG PO; +ZOFRAN ODT4 MG/UDTAB PO
== END | disposition home or self-care (01) ==
LOC: D.RAD 07:33
DX: M25.511 Pain in right shoulder (principal)

== ENCOUNTER 2018-04-13 23:47 | Emergency (ER) | payer MEDICAID ==
[~2018-04-13] VITALS: Ht 162.6 cm; Wt 105.2 kg
[~2018-04-13 23:47] MED LIST changes: -ANTIVERT12.5 MG PO; -CARDIZEM CD120 MG PO; -CIPRO250 MG PO; -FIORICET-COD 51 EACH PO; -FUROSEMIDE20 MG PO; -PERCOCET 10/3251 TA1 PO; -TREXIMET 85-5001 TAB PO; -ULTRACET TABLET1 TAB PO; -VISTARIL50 MG PO; -ZOFRAN ODT4 MG/UDTAB PO
[2018-04-14 00:07] VITALS: Ht 162.6 cm; Wt 105.2 kg
[2018-04-14] MEDS ORDERED: ZANAFLEX4 MG PO (00:09)
[2018-04-14] MEDS ORDERED: CARDIZEM CD120 MG PO (00:09)
[2018-04-14 00:43] LABS: HEMATOCRIT 35.2 % (36.0-48.0); HEMOGLOBIN 12.1 g/dL (12-16); LYMPHOCYTES 41.7 % (15-50); MCH 31.3 pg (26.0-34.0); MCHC 34.4 g/dL (31.0-37.0); MEAN PLATELET VOLUME 10.1 fL (7.4-10.4); NEUTROPHILS 49.3 % (40-80); PLATELET COUNT 189 10x3/uL (130-400); RBC 3.87 10x6/uL (4.00-5.40); RDW 13.4 % (11.5-14.5); WBC 5.5 10x3/uL (4.8-10.8)
[2018-04-14 00:48] LABS: APPEARANCE HAZY (CLEAR); BILIRUBIN NEGATIVE (NEGATIVE); COLOR YELLOW (YELLOW); GLUCOSE NEGATIVE (NEGATIVE); KETONE NEGATIVE (NEGATIVE); NITRITE NEGATIVE (NEGATIVE); PROTEIN NEGATIVE (NEGATIVE); SPECIFIC GRAVITY 1.005 (1.005-1.020); UROBILINOGEN NORMAL (NORMAL)
[2018-04-14 00:57] LABS: BACTERIA FEW /hpf (NONE SEEN); EPITHELIAL CELLS 0-5 /hpf (0-5); RED CELLS - URINE OCC /hpf (0-5)
[2018-04-14 01:00] LABS: APTT 26.9 SECONDS (22.8-39.4); INR 0.95 (0.85-1.17); PROTIME 12.3 SECONDS (11.6-15.0)
[2018-04-14 01:02] LABS: ALBUMIN 3.3 g/dL (3.4-5.0); ALKALINE PHOSPHATASE 171 U/L (46-116); ALT (SGPT) 135 U/L (10-68); BILIRUBIN - TOTAL 0.24 mg/dL (0.2-1.3); CALC OSMOLALITY 287 mosm/kg (275-300); CALCIUM 8.4 mg/dL (8.5-10.1); CARBON DIOXIDE 29.3 mmol/L (21.0-32.0); CHLORIDE - SERUM 109 mmol/L (98-107); CREATININE - SERUM 1.1 mg/dL (0.6-1.3); GLUCOSE 100 mg/dL (74-106); PROTEIN - SERUM 7.5 g/dL (6.4-8.2); SODIUM 145 mmol/L (136-145); UREA NITROGEN 9 mg/dL (7-18); eGFR NON AFRICAN AMERICAN 57 mL/min (90-120)
[2018-04-14 01:16] LABS: CKMB 0.4 U/L (0.0-3.6); CREATINE KINASE 68 UL (21-215); PRO BNP 495 pg/mL (0-125)
[2018-04-14 01:17] LABS: TROPONIN-I < 0.017 ng/mL (0.000-0.060)
[2018-04-14] MEDS ORDERED: ULTRACET TABLET1 TAB PO (01:36)
[2018-04-14] MEDS ORDERED: CIPRO250 MG PO (01:37)
[2018-04-14 01:50] VITALS: BP 145/90
[2018-06-03] MEDS ORDERED: FUROSEMIDE20 MG PO (11:17)
[2018-06-03] MEDS ORDERED: NORCO 7.5/325 T1 TA1 PO (11:17)
== END 2018-04-14 01:51 | disposition home or self-care (01) ==
LOC: D.ER 23:47
PROVIDERS: Emergency Medicine
DX: R10.9 Unspecified abdominal pain (principal); R07.9 Chest pain, unspecified

== ENCOUNTER 2018-04-21 21:28 | Emergency (ER) | payer MEDICAID ==
[~2018-04-21] VITALS: Ht 162.6 cm; Wt 103.4 kg
[~2018-04-21 21:28] MED LIST changes: +CARDIZEM CD120 MG PO; +CIPRO250 MG PO; +ULTRACET TABLET1 TAB PO
[2018-04-21 21:39] VITALS: Ht 162.6 cm; Wt 103.4 kg
[2018-04-21 23:23] VITALS: BP 158/79
[2018-06-03] MEDS ORDERED: FUROSEMIDE20 MG PO (11:17)
[2018-06-03] MEDS ORDERED: NORCO 7.5/325 T1 TA1 PO (11:17)
== END 2018-04-21 23:24 | disposition home or self-care (01) ==
LOC: D.ER 21:28
DX: S43.401A Unspecified sprain of right shoulder joint, initial encounter (principal); W10.9XXA Fall (on) (from) unspecified stairs and steps, initial encounter; Y93.89 Activity, other specified; Y92.019 Unspecified place in single-family (private) house as the place of occurrence of the external cause; S83.91XA Sprain of unspecified site of right knee, initial encounter; Z86.73 Personal history of transient ischemic attack (TIA), and cerebral infarction without residual deficits; Z85.41 Personal history of malignant neoplasm of cervix uteri

== ENCOUNTER 2018-05-02 01:01 | Emergency (ER) | payer MEDICAID ==
[~2018-05-02] VITALS: Ht 162.6 cm; Wt 103.6 kg
[2018-05-02 01:08] VITALS: Ht 162.6 cm; Wt 103.6 kg
[2018-05-02] MEDS ORDERED: TREXIMET 85-5001 TAB PO (02:10)
[2018-05-02] MEDS ORDERED: FIORICET-COD 51 EACH PO (02:51)
[2018-05-02 03:07] VITALS: BP 146/98
[2018-06-03] MEDS ORDERED: NORCO 7.5/325 T1 TA1 PO (11:17)
[2018-06-03] MEDS ORDERED: FUROSEMIDE20 MG PO (11:17)
== END 2018-05-02 03:02 | disposition home or self-care (01) ==
LOC: D.ER 01:01
DX: G43.909 Migraine, unspecified, not intractable, without status migrainosus (principal); Z86.73 Personal history of transient ischemic attack (TIA), and cerebral infarction without residual deficits; M32.9 Systemic lupus erythematosus, unspecified; G40.909 Epilepsy, unspecified, not intractable, without status epilepticus

== ENCOUNTER 2018-05-28 21:09 | Emergency (ER) | payer MEDICAID ==
[~2018-05-28] VITALS: Ht 162.6 cm; Wt 99.1 kg
[~2018-05-28 21:09] MED LIST changes: +FIORICET-COD 51 EACH PO; +TREXIMET 85-5001 TAB PO
[2018-05-28 21:14] VITALS: Ht 162.6 cm; Wt 99.1 kg
[2018-05-28 21:45] LABS: BASOPHILS 0.2 % (0-2); EOSINOPHILS 2.1 % (0-7); HEMOGLOBIN 12.5 g/dL (12-16); IMMATURE GRANULOCYTES 0.2 % (0-5); LYMPHOCYTES 23.8 % (15-50); MCH 30.9 pg (26.0-34.0); MCHC 33.8 g/dL (31.0-37.0); MCV 91.4 fL (80.0-100.0); MEAN PLATELET VOLUME 10.2 fL (7.4-10.4); MONOCYTES 6.2 % (2-11); NEUTROPHILS 67.5 % (40-80); RBC 4.05 10x6/uL (4.00-5.40); RDW 12.8 % (11.5-14.5); WBC 9.7 10x3/uL (4.8-10.8)
[2018-05-28 21:46] LABS: PLATELET COUNT 240 10x3/uL (130-400)
[2018-05-28 22:05] LABS: ALBUMIN 3.3 g/dL (3.4-5.0); ANION GAP 12.1 mmol/L (8-16); BILIRUBIN - TOTAL 0.28 mg/dL (0.2-1.3); CALCIUM 8.2 mg/dL (8.5-10.1); CARBON DIOXIDE 25.9 mmol/L (21.0-32.0); CREATININE - SERUM 1.1 mg/dL (0.6-1.3); PROTEIN - SERUM 7.6 g/dL (6.4-8.2)
[2018-05-29 03:48] LABS: APPEARANCE CLEAR (CLEAR); BILIRUBIN NEGATIVE (NEGATIVE); COLOR YELLOW (YELLOW); GLUCOSE NEGATIVE (NEGATIVE); KETONE NEGATIVE (NEGATIVE); NITRITE NEGATIVE (NEGATIVE); PROTEIN NEGATIVE (NEGATIVE); UROBILINOGEN NORMAL (NORMAL)
[2018-05-29 03:49] LABS: BACTERIA FEW /hpf (NONE SEEN); EPITHELIAL CELLS 0-5 /hpf (0-5); RED CELLS - URINE 0-5 /hpf (0-5)
[2018-05-29] MEDS ORDERED: ANTIVERT12.5 MG PO (03:54)
[2018-05-29 04:09] VITALS: BP 136/79
[2018-06-03] MEDS ORDERED: FUROSEMIDE20 MG PO (11:17)
[2018-06-03] MEDS ORDERED: NORCO 7.5/325 T1 TA1 PO (11:17)
== END 2018-05-29 04:09 | disposition home or self-care (01) ==
LOC: D.ER 21:09
PROVIDERS: Family Medicine
DX: R42 Dizziness and giddiness (principal); R11.10 Vomiting, unspecified; Z95.0 Presence of cardiac pacemaker; Z86.73 Personal history of transient ischemic attack (TIA), and cerebral infarction without residual deficits; G40.909 Epilepsy, unspecified, not intractable, without status epilepticus

== ENCOUNTER 2018-06-04 08:25 | Day surgery (SDC) | payer MEDICAID ==
[~2018-06-04] VITALS: Ht 160 cm; Wt 103.4 kg
--- NOTE | ~2018-06-04 | OP ---
PATIENT NAME: TIANA MAC MEDICAL RECORD: [id number] :75 LOCATION:[facility] ADMISSION DATE: SURGEON: GIANCARLO MOREAU DO DATE OF OPERATION: 06/04/2018 PROCEDURE PERFORMED: Right shoulder arthroscopy with subacromial decompression and biceps tenodesis. PREOPERATIVE DIAGNOSES: Right shoulder pain with SLAP tear, right shoulder and subacromial impingement. POSTOPERATIVE DIAGNOSES: Right shoulder pain with SLAP tear, right shoulder and subacromial impingement. INDICATIONS: Ms. Mac is a 43-year-old female who presented to my office with shoulder pain. She had positive Hawkin sign and weakness with testing rotator cuff. She could not have an MRI due to her pacemaker, so she had a CT arthrogram, which did not demonstrate any significant findings. However, due to the exam findings, I told her she could have a rotator cuff tear versus a SLAP tear and did address those with a shoulder scope. She is okay with anesthesia and aware of the risks and benefits including bleeding, infection, need for further surgery, and continued pain. She is aware that she would have pain after surgery and that her pain control will be difficult due to her already taking pain medicine and she consented to the procedure. SURGEON: Giancarlo Moreau DO DESCRIPTION OF THE PROCEDURE: The patient was given a block by anesthesia in the preoperative area, given 900 mg of clindamycin preoperatively, taken to the operative suite, laid in the left lateral recumbent position. The right shoulder was prepped and draped in sterile fashion. After LMA was placed and sedated, a timeout was performed and everyone was agreement with correct side, site, patient, and procedure. The procedure then began by insufflating the glenohumeral joint on the right itself with an 18-gauge spinal needle and 60 mL of normal saline. Then, the posterior portal was established with an 11-blade scalpel and a trocar was entered into the shoulder joint. Upon inspecting the shoulder joint, there were no tears seen of the rotator cuff itself, some fraying of the subscapularis, but no tear over the supraspinatus or infraspinatus. The anterior portal was then established with an 18-gauge spinal needle and then the burner brought in and a tenotomy of the biceps was done. The SLAP tear was noted also upon inspecting the joint and then the shoulder scope was withdrawn and entered into the subacromial space. A decent size spur was noted on the distal acromion and lateral acromion. This was cleaned up and a partial bursectomy was done also the subacromial bursa and then the spur was taken off the acromion. The AC joint was inspected and no significant spurring was seen there. This was after the lateral portal was established with an 18-gauge spinal needle and then 11-blade scalpel. Then, the attention was drawn to the bicep tenodesis site and then the anterior humerus. An incision was made on the anterior humerus and careful dissection was made down to the bicep tendon itself. This was fished out of the wound and whipstitched and then tacked down to the humerus with a unicortical button and tied down and then a free needle was used to over tight the extra suture on the bicep tendon itself and the excess tendon and extra suture were cut at that time. All the wounds were then thoroughly irrigated. The anterior, posterior and lateral portals were closed with 4-0 Monocryl in inverted interrupted fashion and the bicep tenodesis site OPERATIVE REPORT [id number] TIANA MAC was closed with 2-0 Vicryl and 4-0 Monocryl running on the skin. COMPLICATIONS: None. BLOOD LOSS: Minimal. TRANSINT:[id number] Voice Confirmation ID: [id number] DOCUMENT ID: [id number] GIANCARLO MOREAU DO at 0829 CC: [id number] DICTATION DATE: 06/04/18 1532 PIN DRAFTING MACHINE OPERATOR: 06/04/18 1551 [facility] 06/04/18 [place] [address] [place] [address]
[~2018-06-04 08:25] MED LIST changes: +ANTIVERT12.5 MG PO; +FUROSEMIDE20 MG PO
[2018-06-04 09:43] VITALS: BP 93/65; Ht 160 cm; Wt 103.4 kg
[2018-06-04] MEDS ORDERED: PERCOCET 10/3251 TA1 PO (15:25)
[2018-06-04] MEDS ORDERED: VISTARIL50 MG PO (15:26)
[2018-06-04] MEDS ORDERED: ZOFRAN ODT4 MG/UDTAB PO (15:27)
== END 2018-06-04 17:10 | disposition home or self-care (01) ==
LOC: D.OPS 08:25 → D.PAN 09:45 → D.OPS 10:45
DX: S43.431A Superior glenoid labrum lesion of right shoulder, initial encounter (principal); M75.41 Impingement syndrome of right shoulder; Z95.0 Presence of cardiac pacemaker; Z01.812 Encounter for preprocedural laboratory examination; X58.XXXA Exposure to other specified factors, initial encounter

== ENCOUNTER → 2018-06-12 10:40 | Outpatient (CLI) | payer MEDICAID ==
[2018-06-04 09:43] VITALS: BMI 40.4
[~2018-06-12 10:40] MED LIST changes: +PERCOCET 10/3251 TA1 PO; +VISTARIL50 MG PO; +ZOFRAN ODT4 MG/UDTAB PO
== END | disposition home or self-care (01) ==
LOC: D.LAB 10:40
DX: M25.511 Pain in right shoulder (principal)

== ENCOUNTER → 2018-06-12 10:58 | Outpatient (CLI) | payer MEDICAID ==
[2018-06-04 09:43] VITALS: BMI 40.4
[2018-06-12 11:43] LABS: BASOPHILS 0.5 % (0-2); EOSINOPHILS 6.4 % (0-7); HEMATOCRIT 35.9 % (36.0-48.0); HEMOGLOBIN 12.1 g/dL (12-16); IMMATURE GRANULOCYTES 0.3 % (0-5); LYMPHOCYTES 39.9 % (15-50); MCH 30.8 pg (26.0-34.0); MCHC 33.7 g/dL (31.0-37.0); MCV 91.3 fL (80.0-100.0); MEAN PLATELET VOLUME 10.3 fL (7.4-10.4); MONOCYTES 7.3 % (2-11); NEUTROPHILS 45.6 % (40-80); PLATELET COUNT 274 10x3/uL (130-400); RBC 3.93 10x6/uL (4.00-5.40); RDW 12.5 % (11.5-14.5); WBC 7.7 10x3/uL (4.8-10.8)
[2018-06-12 12:53] LABS: ERYTHROCYTE SEDIMENTATION RATE 30 mm/hr (0-20)
== END | disposition home or self-care (01) ==
LOC: D.LABREF 10:58
PROVIDERS: Orthopaedic Surgery
DX: M25.511 Pain in right shoulder (principal)

== ENCOUNTER 2018-06-21 15:33 | Emergency (ER) | payer MEDICAID ==
[~2018-06-21] VITALS: Ht 160 cm; Wt 99.5 kg
[2018-06-21 15:46] VITALS: Ht 160 cm; Wt 99.5 kg
[2018-06-21 18:13] LABS: APPEARANCE CLEAR (CLEAR); BILIRUBIN NEGATIVE (NEGATIVE); COLOR DK YELLOW (YELLOW); GLUCOSE NEGATIVE (NEGATIVE); KETONE NEGATIVE (NEGATIVE); NITRITE NEGATIVE (NEGATIVE); PROTEIN NEGATIVE (NEGATIVE); UROBILINOGEN NORMAL (NORMAL)
[2018-06-21 18:18] LABS: WHITE CELLS - URINE 0-5 /hpf (0-5)
[2018-06-21 18:22] LABS: BACTERIA MODERATE /hpf (NONE SEEN); RED CELLS - URINE 0-5 /hpf (0-5)
[2018-06-21 21:40] LABS: BASOPHILS 0.3 % (0-2); EOSINOPHILS 0.8 % (0-7); HEMATOCRIT 42.5 % (36.0-48.0); HEMOGLOBIN 14.4 g/dL (12-16); IMMATURE GRANULOCYTES 0.2 % (0-5); LYMPHOCYTES 23.8 % (15-50); MCH 30.6 pg (26.0-34.0); MCHC 33.9 g/dL (31.0-37.0); MCV 90.4 fL (80.0-100.0); MEAN PLATELET VOLUME 10.6 fL (7.4-10.4); NEUTROPHILS 68.9 % (40-80); PLATELET COUNT 260 10x3/uL (130-400); RDW 12.3 % (11.5-14.5); WBC 11.5 10x3/uL (4.8-10.8)
[2018-06-21 23:00] LABS: ALBUMIN 3.6 g/dL (3.4-5.0); ANION GAP 15.7 mmol/L (8-16); BILIRUBIN - TOTAL 0.36 mg/dL (0.2-1.3); CALCIUM 9.1 mg/dL (8.5-10.1); CARBON DIOXIDE 22.7 mmol/L (21.0-32.0); CREATININE - SERUM 1.2 mg/dL (0.6-1.3); POTASSIUM - SERUM 4.4 mmol/L (3.5-5.1); PROTEIN - SERUM 8.3 g/dL (6.4-8.2)
[2018-06-21] MEDS ORDERED: ZOFRAN8 MG PO (23:18)
[2018-06-21] MEDS ORDERED: MACROBID100 MG PO (23:24)
[2018-06-22 00:24] VITALS: BP 123/85
== END 2018-06-22 00:25 | disposition home or self-care (01) ==
LOC: D.ER 15:33
PROVIDERS: Family Medicine
DX: R11.2 Nausea with vomiting, unspecified (principal); Z98.890 Other specified postprocedural states; M25.511 Pain in right shoulder; N39.0 Urinary tract infection, site not specified; Z86.73 Personal history of transient ischemic attack (TIA), and cerebral infarction without residual deficits; G40.909 Epilepsy, unspecified, not intractable, without status epilepticus; W18.30XA Fall on same level, unspecified, initial encounter; Y93.89 Activity, other specified; Y92.019 Unspecified place in single-family (private) house as the place of occurrence of the external cause

== ENCOUNTER 2018-10-13 12:06 | Emergency (ER) | payer MEDICAID ==
[~2018-10-13] VITALS: Ht 160 cm; Wt 104.5 kg
[~2018-10-13 12:06] MED LIST changes: +MACROBID100 MG PO; +ZOFRAN8 MG PO
[2018-10-13 12:08] VITALS: Ht 160 cm; Wt 104.5 kg
[2018-10-13 16:31] LABS: BASOPHILS 0.2 % (0-2); EOSINOPHILS 0.6 % (0-7); HEMATOCRIT 35.8 % (36.0-48.0); IMMATURE GRANULOCYTES 0.7 % (0-5); LYMPHOCYTES 11.9 % (15-50); MCH 30.3 pg (26.0-34.0); MCHC 33.5 g/dL (31.0-37.0); MCV 90.4 fL (80.0-100.0); MEAN PLATELET VOLUME 11.5 fL (7.4-10.4); MONOCYTES 5.1 % (2-11); NEUTROPHILS 81.5 % (40-80); RBC 3.96 10x6/uL (4.00-5.40); RDW 13.3 % (11.5-14.5)
[2018-10-13 16:32] LABS: PLATELET COUNT 129 10x3/uL (130-400)
[2018-10-13 17:03] LABS: CALC OSMOLALITY 283 mosm/kg (275-300); CALCIUM 8.1 mg/dL (8.5-10.1); CHLORIDE - SERUM 107 mmol/L (98-107); CREATININE - SERUM 0.8 mg/dL (0.6-1.3); GLUCOSE 115 mg/dL (74-106); POTASSIUM - SERUM 4.3 mmol/L (3.5-5.1); SODIUM 142 mmol/L (136-145); UREA NITROGEN 13 mg/dL (7-18); eGFR NON AFRICAN AMERICAN 83 mL/min (90-120)
[2018-10-13 17:24] VITALS: BP 112/81
== END 2018-10-13 17:27 | disposition home or self-care (01) ==
LOC: D.ER 12:06
PROVIDERS: Emergency Medicine
DX: G43.009 Migraine without aura, not intractable, without status migrainosus (principal)

== ENCOUNTER 2018-12-14 01:03 | Emergency (ER) | payer MEDICAID ==
[~2018-12-14] VITALS: Ht 160 cm; Wt 100.0 kg
[2018-12-14 01:08] VITALS: Ht 160 cm; Wt 100.0 kg
[2018-12-14 01:45] LABS: APPEARANCE CLEAR (CLEAR); BILIRUBIN NEGATIVE (NEGATIVE); COLOR YELLOW (YELLOW); GLUCOSE NEGATIVE (NEGATIVE); KETONE NEGATIVE (NEGATIVE); NITRITE NEGATIVE (NEGATIVE); PROTEIN NEGATIVE (NEGATIVE); UROBILINOGEN NORMAL (NORMAL)
[2018-12-14 01:46] LABS: BASOPHILS 0.2 % (0-2); EOSINOPHILS 2.4 % (0-7); IMMATURE GRANULOCYTES 0.3 % (0-5); LYMPHOCYTES 26.7 % (15-50); MCH 30.2 pg (26.0-34.0); MCHC 33.3 g/dL (31.0-37.0); MCV 90.5 fL (80.0-100.0); MEAN PLATELET VOLUME 10.4 fL (7.4-10.4); MONOCYTES 6.6 % (2-11); NEUTROPHILS 63.8 % (40-80); PLATELET COUNT 260 10x3/uL (130-400); RBC 4.31 10x6/uL (4.00-5.40); RDW 13.7 % (11.5-14.5)
[2018-12-14 01:59] LABS: ALBUMIN 3.1 g/dL (3.4-5.0); ANION GAP 15.4 mmol/L (8-16); BILIRUBIN - TOTAL 0.21 mg/dL (0.2-1.3); CALCIUM 8.4 mg/dL (8.5-10.1); CARBON DIOXIDE 24.5 mmol/L (21.0-32.0); POTASSIUM - SERUM 3.9 mmol/L (3.5-5.1)
[2018-12-14 02:36] VITALS: BP 139/71
== END 2018-12-14 02:35 | disposition home or self-care (01) ==
LOC: D.ER 01:03
PROVIDERS: Family Medicine
DX: M54.5 Low back pain (principal)

== ENCOUNTER 2018-12-31 18:52 | Inpatient (IN) | payer MEDICAID ==
[~2018-12-31] VITALS: Ht 160 cm; Wt 109.5 kg
[~2018-12-31 18:52] MED LIST changes: -DEPAKOTE ER500 MG PO; +DEPAKOTE125 MG PO
[2018-12-31 20:07] LABS: BASOPHILS 0.2 % (0-2); EOSINOPHILS 1.7 % (0-7); HEMATOCRIT 38.6 % (36.0-48.0); HEMOGLOBIN 12.7 g/dL (12-16); IMMATURE GRANULOCYTES 0.2 % (0-5); LYMPHOCYTES 17.2 % (15-50); MCH 29.3 pg (26.0-34.0); MCHC 32.9 g/dL (31.0-37.0); MCV 89.1 fL (80.0-100.0); MEAN PLATELET VOLUME 10.8 fL (7.4-10.4); MONOCYTES 3.7 % (2-11); PLATELET COUNT 272 10x3/uL (130-400); RBC 4.33 10x6/uL (4.00-5.40); RDW 13.5 % (11.5-14.5); WBC 14.4 10x3/uL (4.8-10.8)
[2018-12-31 20:26] LABS: ANION GAP 13.7 mmol/L (8-16); BILIRUBIN - TOTAL 0.22 mg/dL (0.2-1.3); CALCIUM 8.4 mg/dL (8.5-10.1); CREATININE - SERUM 1.2 mg/dL (0.6-1.3); POTASSIUM - SERUM 3.7 mmol/L (3.5-5.1); PROTEIN - SERUM 7.5 g/dL (6.4-8.2)
[2018-12-31 20:47] LABS: APPEARANCE CLEAR (CLEAR); BILIRUBIN NEGATIVE (NEGATIVE); COLOR YELLOW (YELLOW); GLUCOSE NEGATIVE (NEGATIVE); KETONE NEGATIVE (NEGATIVE); NITRITE NEGATIVE (NEGATIVE); PROTEIN NEGATIVE (NEGATIVE); UROBILINOGEN NORMAL (NORMAL)
[2018-12-31 20:48] LABS: BACTERIA MODERATE /hpf (NONE SEEN); EPITHELIAL CELLS 0-5 /hpf (0-5); RED CELLS - URINE 0-5 /hpf (0-5); WHITE CELLS - URINE 0-5 /hpf (0-5)
[2018-12-31 20:49] LABS: UDS - AMPHET NEGATIVE QUAL (NEGATIVE); UDS - BARB NEGATIVE QUAL (NEGATIVE); UDS - BENZO NEGATIVE QUAL (NEGATIVE); UDS - COCAINE NEGATIVE QUAL (NEGATIVE); UDS - OPIATE POSITIVE QUAL (NEGATIVE); UDS - PCP NEGATIVE QUAL (NEGATIVE); UDS - THC NEGATIVE QUAL (NEGATIVE)
--- NOTE | 2019-01-01 00:51 | NUR ---
AWAKE AND ALERT, SITTING UP IN BED PLAYING ON PHONE, NO DISTRESS.
[2019-01-01 06:04] VITALS: BP 153/100
[2019-01-01 06:16] VITALS: BP 140/72; BMI 40.8
[2019-01-01 06:58] LABS: BASOPHILS 0.2 % (0-2); EOSINOPHILS 2.7 % (0-7); HEMATOCRIT 36.4 % (36.0-48.0); HEMOGLOBIN 12.2 g/dL (12-16); IMMATURE GRANULOCYTES 0.2 % (0-5); LYMPHOCYTES 31.1 % (15-50); MCH 29.7 pg (26.0-34.0); MCHC 33.5 g/dL (31.0-37.0); MCV 88.6 fL (80.0-100.0); MEAN PLATELET VOLUME 11.2 fL (7.4-10.4); NEUTROPHILS 59.8 % (40-80); PLATELET COUNT 251 10x3/uL (130-400); RBC 4.11 10x6/uL (4.00-5.40); RDW 13.8 % (11.5-14.5)
[2019-01-01 07:00] LABS: WBC 8.7 10x3/uL (4.8-10.8)
[2019-01-01 07:47] VITALS: BP 130/86
--- NOTE | 2019-01-01 07:52 | NUR ---
PT IN A GOOD MOOD THIS AM. SITTING UP IN BED EATING BREAKFAST. ANSWERS ALL QUESTIONS. STATES SHE IS NOT DIZZY UNTIL SHE STANDS UP. ADVISED PT TO RISE SLOWLY TO HELP OFFSET SOME DIZZINESS. PT VERBALIZES UNDERSTANDING. PT STATES HER PIV TO HER LEFT UPPER ARM STORY. HER LEFT UPPER ARM IS RED AND HARD. STOPPED NS INFUSION. PT REQUEST TO NOT HAVE A NEW PIV PLACED UNTIL SHE FINDS OUT IF SHE WILL BE DISCHARGED OR NOT TODAY. DENIES ANY OTHER NEEDS AT THIS TIME, WILL CONT TO FOLLOW PLAN OF CARE
[2019-01-01 07:57] LABS: CALCIUM 8.4 mg/dL (8.5-10.1); CARBON DIOXIDE 23.4 mmol/L (21.0-32.0); CHLORIDE - SERUM 106 mmol/L (98-107); CKMB 0.2 U/L (0.0-3.6); CREATINE KINASE 55 UL (21-215); GLUCOSE 116 mg/dL (74-106); MAGNESIUM - SERUM 2.1 mg/dL (1.8-2.4); POTASSIUM - SERUM 3.9 mmol/L (3.5-5.1); SODIUM 139 mmol/L (136-145); eGFR NON AFRICAN AMERICAN 64 mL/min (90-120)
[2019-01-01 07:58] LABS: CALC OSMOLALITY 277 mosm/kg (275-300); TROPONIN-I < 0.017 ng/mL (0.000-0.060); UREA NITROGEN 9 mg/dL (7-18)
--- NOTE | 2019-01-01 09:44 | NUR ---
PT REPORTS DIZZINESS AND HER EARS RINGING. BP READING 66/42. RECHECKED BP WITH SMALLER CUFF AND BP IS 77/38. PT PIV INFILTRATED THIS AM AND SHE REFUSED TO BE RESITED DUE TO HOPES OF DC. ADVISED PT SHE NEEDS IVF TO HELP INCREASE HER BP. ERICA VASCULAR NURSE CAME TO ROOM TO START A PIV. 22G PIV PLACED IN PT LEFT UPPER ARM X2 ATTEMPT. NS RESTARTED ORDERED.
--- NOTE | 2019-01-01 09:59 | NUR ---
SPOKE WITH TRISTON BLANCA TO ALERT HER OF PT STATUS. PER EVANGELIST, GIVE PT A 1L BOLUS OF NS THEN RUN NS AT 200ML/HR. BOLUS IS CURRENTLY INFUSING.
--- NOTE | 2019-01-01 11:12 | NUR ---
NS BOLUS COMPLETE. PT BP IS 100/68. ASSISTED PT TO BEDSIDE COMMODE AND BACK INTO BED. NEW BAG NS GOING AT 200ML/HR ORDERED
[2019-01-01 14:54] VITALS: Ht 160 cm; Wt 109.5 kg
[2019-01-01 17:26] VITALS: BP 149/92
--- NOTE | 2019-01-01 19:43 | NUR ---
PATIENT LAYING IN BED. PATIENT IS WORRIED ABOUT HAVING A PICC/MIDLINE PLACE. HAD QUESTIONS THAT WERE ANSWERED. NO OTHER COMPLAINTS AT THIS TIME. NO DISTRESS NOTED.
--- NOTE | 2019-01-01 20:50 | NUR ---
IV TO LEFT UPPER ARM INFILTRATED. IV REMOVED WITH TIP INTACT.
--- NOTE | 2019-01-02 02:44 | NUR ---
PATIENT LAYING IN BED. FAMILY AT BEDSIDE. NO COMPLAINTS AT THIS TIME. NO DISTRESS NOTED.
[2019-01-02 06:14] LABS: BASOPHILS 0.5 % (0-2); EOSINOPHILS 2.6 % (0-7); HEMATOCRIT 34.8 % (36.0-48.0); HEMOGLOBIN 11.5 g/dL (12-16); IMMATURE GRANULOCYTES 0.2 % (0-5); LYMPHOCYTES 35.2 % (15-50); MCH 29.3 pg (26.0-34.0); MCV 88.8 fL (80.0-100.0); MEAN PLATELET VOLUME 10.8 fL (7.4-10.4); MONOCYTES 5.1 % (2-11); NEUTROPHILS 56.4 % (40-80); PLATELET COUNT 228 10x3/uL (130-400); RBC 3.92 10x6/uL (4.00-5.40); RDW 13.9 % (11.5-14.5); WBC 8.1 10x3/uL (4.8-10.8)
[2019-01-02 06:26] LABS: ANION GAP 13.4 mmol/L (8-16); CALCIUM 7.8 mg/dL (8.5-10.1); CARBON DIOXIDE 23.6 mmol/L (21.0-32.0)
[2019-01-02 10:02] VITALS: BP 100/75
[2019-01-02 11:55] VITALS: BP 153/95
[2019-01-02 11:56] VITALS: BP 141/90; BP 147/97
--- NOTE | 2019-01-02 12:16 | NUR ---
ORTHOSTATIC VITAL SIGNS LYING 141/90 PULSE 77 SITTING 147/97 PULSE 79 STANDING 153/95 PULSE 82
--- NOTE | 2019-01-02 12:57 | MORECARE ---
CASE MANAGEMENT DISCHARGE SUMMARY PATIENT: TIANA MAC UNIT: [id number] ADM DATE: 01/01/19 AGE: 43 : 75 SEX: F ROOM/BED: D.2102 AUTHOR: TATYANA BAEZ PHYSICIAN: REFERRING PHYSICIAN: JOEY AREVALO MD DATE OF SERVICE: 01/02/19 Discharge Plan Patient Name: [facility]IANA MAC [facility] [facility] 1975 Planned Disposition: Home Anticipated Discharge Date: 01/02/19 Discharge Date: Expected LOS: 1 Initial Reviewer: [email or web address] Initial Review Date: 01/02/2019 Generated: 01/02/19 1:57 pm DCPIA - Discharge Planning Initial Assessment Updated by [email or web address]: Jacques Green on 01/02/19 12:53 pm * Is the patient Alert and Oriented? Yes * How many steps to enter\exit or inside your home? 20-0 / 0-I * PCP DR. PINO * Pharmacy [facility] * Preadmission Environment Home with Family * ADLs Independent * Equipment Shower Chair Wheelchair * Other Equipment [facility] * List name and contact numbers for known caregivers / representatives who currently or will assist patient after discharge: RACHAEL LYON DTR, JYOTHI MAC, SPOUSE, * Verbal permission to speak to the caregivers and representatives has been obtained from the patient. Yes * Community resources currently utilized None * Please name any agencies selected above. NONE * Additional services required to return to the preadmission environment? No * Can the patient safely return to the preadmission environment? Yes * Has this patient been hospitalized within the prior 30 days at any hospital? No Patient Name: TIANA MAC Page [id number] at 1257 All edits/amendments must be made on the electronic document DICTATION DATE: 01/02/19 1256 BRAKE LINING DRILLER: GOLDIE 01/02/19 1256 RPT#: [id number] DC DATE: STATUS: ADM IN [facility] [address] [place] [address] END OF REPORT
[2019-01-02] MEDS ORDERED: ATARAX 25 MG TA25 MG PO (13:09)
[2019-01-02] MEDS ORDERED: ANTIVERT12.5 MG PO (13:11)
--- NOTE | 2019-01-02 13:23 | MORECARE ---
CASE MANAGEMENT DISCHARGE SUMMARY PATIENT: TIANA MAC UNIT: [id number] ADM DATE: 01/01/19 AGE: 43 : 75 SEX: F ROOM/BED: D.2102 AUTHOR: SASHA,DOC PHYSICIAN: REFERRING PHYSICIAN: JOEY AREVALO MD DATE OF SERVICE: 01/02/19 Discharge Plan Patient Name: ITANA MAC Facility: [facility]:[place] : 1975 Planned Disposition: Home Anticipated Discharge Date: 01/02/19 Discharge Date: Expected LOS: 1 Initial Reviewer: [email or web address] Initial Review Date: 01/02/2019 Generated: 01/02/19 2:23 pm Comments DCP- Discharge Planning Updated by [id number]: Jacques Virgen on 01/02/19 12:[address] Patient Name: TIANA MAC Encounter No: [id number] : 1975 Primary Insurance: MEDICAID [place] Anticipated DC Date: 01-02-2019 Planned Disposition: Home DISCHARGE PLANNING NOTE: CM MET WITH PT IN ROOM TO DISCUSS DISCHARGE PLANNING AND NEEDS. TIANA MAC provided verbal consent to discuss current and ongoing needs with/in the presence of: DAUGHTERRACHAEL. PT REPORTS LIVING AT HOME DEPENDENTLY WITH HER SPOUSE, SON AND DAUGHTER. PT REPORTS HAVING ASSISTANCE WITH BATHING FROM FAMILY MEMBER. PT HAS WHEELCHAIR AND SHOWER CHAIR. PT'S MEDICAL EQUIPMENT PROVIDER IS [employer]. PT HAS NO OUTSIDE SERVICES ASSISTING IN THE HOME. CM DISCUSSED AVAILABILITY OF HOME HEALTH, REHAB SERVICES AND MEDICAL EQUIPMENT. PT REPORTS NEEDING A WALKER WITH WHEELS SEAT AND BRAKES WELL BEDSIDE COMMODE TO USE AT NIGHT AND DUE TO DIZZINESS EVERY DAY. PT REPORTS HER FAMILY WILL PICK HER UP FOR DISCHARGE HOME. MEDICAL EQUIPMENT CHOICE SIGNED FOR [facility], PT STATES THEY WILL HISTORIC SITES REGISTRAR THE EQUIPMENT AT [facility]. CM CALLED [facility], , LEFT MESSAGE ON MACHINE THEY WERE NOT ANSWERING PHONE. CM FAXED ORDERS TO [facility] AT [phone]. JACQUES VIRGEN, CASE MANAGEMENT DCPIA - Discharge Planning Initial Assessment Updated by [id number]: Jacques Virgen on 01/02/19 12:53 pm * Is the patient Alert and Oriented? Yes * How many steps to enter\exit or inside your home? 20-0 / 0-I * PCP DR. PINO * Pharmacy [facility] [address] * Preadmission Environment Home with Family * ADLs Independent * Equipment Shower Chair Wheelchair * Other Equipment [facility] - [facility] * List name and contact numbers for known caregivers / representatives who currently or will assist patient after discharge: RACHAEL LYON, DTR, JYOTHI MAC, SPOUSE, * Verbal permission to speak to the caregivers and representatives has been obtained from the patient. Yes * Community resources currently utilized None * Please name any agencies selected above. NONE * Additional services required to return to the preadmission environment? No * Can the patient safely return to the preadmission environment? Yes * Has this patient been hospitalized within the prior 30 days at any hospital? No External [facility]iders [facility] Next Contact Date: 01/02/2019 Service Request Date: Service Type: Resolution: Reviewer: Comments: Coverage Notice Reviewer: [id number] - Jacques Virgen Notice Issued Date-Time: 01/02/2019 12:35 Notice Type: IM Discharge Notice Notice Delivered To: Patient Relationship to Patient: It Instructor Name: Delivery Method: HAND - Hand Delivered Claudia Days: Prior Verbal Notification: Recipient Understood Notice: Yes Recipient Signature: Yes Med Rec Note Co-signed by Attending: Coverage Notice Comment: [facility] Last DP export: 01/02/19 11:57 a Patient Name: TIANA MAC Page [phone] at 1323 All edits/amendments must be made on the electronic document DICTATION DATE: 01/02/19 1322 CENTRAL LAB TECHNICIAN: GOLDIE 01/02/19 1322 RPT#: [id number] DC DATE: STATUS: ADM IN [facility] [address] [place] [address] END OF REPORT
--- NOTE | 2019-01-03 15:13 | EC ---
PATIENT:TIANA MAC DATE OF SERVICE: 12/31/18 SEX: F MEDICAL RECORD: [id number] DATE OF : 75 LOCATION:D.M2 D.210 AGE OF PATIENT: 43 ADMISSION DATE: 01/01/19 REFERRING PHYSICIAN: INTERPRETING PHYSICIAN: RUBEN FERGUSON MD ECHOCARDIOGRAM REPORT ECHO CHARGES 4 ECHO COMPLETE Date: 01/01/19 CLINICAL DIAGNOSIS: SYNCOPE ECHOCARDIOGRAPHIC MEASUREMENTS (adult normal given) AC root (d.<3.7cm) 3.4 cm LV Septum d (<1.2 cm> 1.1 cm Valve Excursion 2.0 cm LV Septum (systole) 1.7 cm Left Atria (s.<4.0cm> 2.8 cm LVPW d(<1.2cm) 1.2 cm RV (d.<2.3cm) 2.2 cm LVPW (sytole) 1.8 cm LV diastole(<5.6CM) 5.7 cm MV E-F(>70mm/sec) cm LV systole 3.5 cm LVOT Diameter 1.9 cm MV exc.(>10mm) cm Est.ejection fraction (50-75%) % DOPPLER: LVIT cm/sec A 95.0 cm/sec E 107 cm/sec LA cm/sec RVSP 29.3 mmHg LVOT 79.0 cm/sec AOP1/2T m/s Asc. Ao 143 cm/sec RVOT 47.0 cm/sec RA cm/sec PA 89.0 cm/sec AV Gradient Peak 8.2 mmHg AV Mean 4.1 mmHg AV Area 1.9 cm MV Gradient Peak 4.9 mmHg MV Mean 1.9 mmHg MV Area cm COMMENTS: Human Resource Advisor: Berhane JACKSONOE Heading Up Machine Operator: 1 Dr. Ferguson TAPE# PACS Pericardial Effusion N DATE OF SERVICE: 01/01/2019 PROCEDURE: Echocardiogram. FINDINGS: 1. Left ventricular chamber size is within normal limits. Left ventricular systolic function is normal. Overall ejection fraction estimated at 55%. 2. Left atrium, right atrium, and right ventricular chamber sizes are within normal limits. 3. Valvular structures have normal structure and motion. ECHOCARDIOGRAM REPORT [id number] TIANA MAC 4. Doppler interrogation reveals trace mitral regurgitation, mild tricuspid regurgitation, no other valvular insufficiency or stenosis. Pulmonary systolic pressure is estimated at 29 mmHg. 5. No evidence of pericardial effusion or left ventricular thrombus. TRANSINT:[id number] Voice Confirmation ID: [id number] DOCUMENT ID: [id number] RUBEN FERGUSON MD at 1513 CC: [id number] DICTATION DATE: 01/01/19 1548 DRIVING INSTRUCTOR: 01/01/19 1559 DIS IN 01/02/19 [place] [id number] [place] [id number]
--- NOTE | 2019-01-03 16:52 | MORECARE ---
CASE MANAGEMENT DISCHARGE SUMMARY PATIENT: TIANA MAC UNIT: [id number] ADM DATE: 01/01/19 AGE: 43 : 75 SEX: F ROOM/BED: D.2102 AUTHOR: SASHA,DOC PHYSICIAN: REFERRING PHYSICIAN: JOEY AREVALO MD DATE OF SERVICE: 01/03/19 Discharge Plan Patient Name: TIANA MAC Facility: [facility]:[place] : 1975 Planned Disposition: Home Anticipated Discharge Date: 01/02/19 Discharge Date: 01/02/2019 Expected LOS: 1 Initial Reviewer: [email or web address] Initial Review Date: 01/02/2019 Generated: 01/03/19 5:52 pm Comments DCP- Discharge Planning Updated by [email or web address]: Jacques Virgen on 01/02/19 12:[address] Patient Name: TIANA MAC Encounter No: [id number] : 1975 Primary Insurance: MEDICAID [place] Anticipated DC Date: 01-02-2019 Planned Disposition: Home DISCHARGE PLANNING NOTE: CM MET WITH PT IN ROOM TO DISCUSS DISCHARGE PLANNING AND NEEDS. TIANA MAC provided verbal consent to discuss current and ongoing needs with/in the presence of: DAUGHTERRACHAEL. PT REPORTS LIVING AT HOME DEPENDENTLY WITH HER SPOUSE, SON AND DAUGHTER. PT REPORTS HAVING ASSISTANCE WITH BATHING FROM FAMILY MEMBER. PT HAS WHEELCHAIR AND SHOWER CHAIR. PT'S MEDICAL EQUIPMENT PROVIDER IS [employer]. PT HAS NO OUTSIDE SERVICES ASSISTING IN THE HOME. CM DISCUSSED AVAILABILITY OF HOME HEALTH, REHAB SERVICES AND MEDICAL EQUIPMENT. PT REPORTS NEEDING A WALKER WITH WHEELS SEAT AND BRAKES WELL BEDSIDE COMMODE TO USE AT NIGHT AND DUE TO DIZZINESS EVERY DAY. PT REPORTS HER FAMILY WILL PICK HER UP FOR DISCHARGE HOME. MEDICAL EQUIPMENT CHOICE SIGNED FOR [facility], PT STATES THEY WILL FORENSICS ANALYST THE EQUIPMENT AT [facility]. CM CALLED [employer] [facility], , LEFT MESSAGE ON MACHINE THEY WERE NOT ANSWERING PHONE. CM FAXED ORDERS TO [facility] AT [phone]. JACQUES VIRGEN, CASE MANAGEMENT DCPIA - Discharge Planning Initial Assessment Updated by [id number]: Jacques Virgen on 01/02/19 12:53 pm * Is the patient Alert and Oriented? Yes * How many steps to enter\exit or inside your home? 20-0 / 0-I * PCP DR. PINO * Pharmacy [facility] [address] * Preadmission Environment Home with Family * ADLs Independent * Equipment Shower Chair Wheelchair * Other Equipment [facility] - [facility] * List name and contact numbers for known caregivers / representatives who currently or will assist patient after discharge: RACHAEL LYON, DTR, JYOTHI MAC, SPOUSE, * Verbal permission to speak to the caregivers and representatives has been obtained from the patient. Yes * Community resources currently utilized None * Please name any agencies selected above. NONE * Additional services required to return to the preadmission environment? No * Can the patient safely return to the preadmission environment? Yes * Has this patient been hospitalized within the prior 30 days at any hospital? No External Providers [facility] Contact Date: 01/03/2019 Service Request Date: Service Type: Resolution: Reviewer: Comments: Coverage Notice Reviewer: [email or web address] Bret Virgen Notice Issued Date-Time: 01/02/2019 12:35 Notice Type: IM Discharge Notice Notice Delivered To: Patient Relationship to Patient: Environmental Health Aide Name: Delivery Method: HAND - Hand Delivered Claudia Days: Prior Verbal Notification: Recipient Understood Notice: Yes Recipient Signature: Yes Med Rec Note Co-signed by Attending: Coverage Notice Comment: [facility] Last DP export: 01/02/19 12:23 p Patient Name: TIANA MAC Page [id number] at 1652 All edits/amendments must be made on the electronic document DICTATION DATE: 01/03/191650 INSIDE SALES ADVERTISING EXECUTIVE: GOLDIE 01/03/191650 RPT#: [id number] DC DATE:01/02/19 STATUS: DIS IN [facility] [address] [place] [address] END OF REPORT
--- NOTE | 2019-01-03 17:00 | MORECARE ---
CASE MANAGEMENT DISCHARGE SUMMARY PATIENT: TIANA MAC UNIT: [id number] ADM DATE: 01/01/19 AGE: 43 : 75 SEX: F ROOM/BED: D.2102 AUTHOR: SASHA,DOC PHYSICIAN: REFERRING PHYSICIAN: JOEY AREVALO MD DATE OF SERVICE: 01/03/19 Discharge Plan Patient Name: TIANA MAC Facility: [facility]:[place] : 1975 Planned Disposition: Home Anticipated Discharge Date: 01/02/19 Discharge Date: 01/02/2019 Expected LOS: 1 Initial Reviewer: [email or web address] Initial Review Date: 01/02/2019 Generated: 01/03/19 5:59 pm Comments DCP- Discharge Planning Updated by [email or web address]: Jacques Virgen on 01/03/19 3:[address] Patient Name: TIANA MAC Encounter No: [id number] : 1975 Primary Insurance: MEDICAID [place] Anticipated DC Date: 01-02-2019 Planned Disposition: Home DCP follow-up note: CM RECEIVED CALL FROM [facility], THEY NO LONGER BILL INSURANCE FOR MEDICAL EQUIPMENT, REFERRED CM TO [facility] FOR PT'S NEEDS. CM CALLED AND SPOKE TO PT VIA PHONE AND INFORMED OF ABOVE, PT IN AGREEMENT WITH PLAN AND KNOWS WHERE THE [facility] STORE IS LOCATED FOR PICKUP OF EQUIPMENT. CM FAXED MEDICAL EQUIPMENT ORDER TO [facility] [phone]; CM CALLED AND NOTIFIED [facility] OF ORDER AT [phone]. Jacques Virgen, MAKAYLA REYNOLDS DCP- Discharge Planning Updated by [id number]: Jacques Virgen on 01/02/19 12:[address] Patient Name: TIANA MAC Encounter No: [id number] : 1975 Primary Insurance: MEDICAID [place] Anticipated DC Date: 01-02-2019 Planned Disposition: Home DISCHARGE PLANNING NOTE: CM MET WITH PT IN ROOM TO DISCUSS DISCHARGE PLANNING AND NEEDS. TIANA MAC provided verbal consent to discuss current and ongoing needs with/in the presence of: DAUGHTERRACHAEL. PT REPORTS LIVING AT HOME DEPENDENTLY WITH HER SPOUSE, SON AND DAUGHTER. PT REPORTS HAVING ASSISTANCE WITH BATHING FROM FAMILY MEMBER. PT HAS WHEELCHAIR AND SHOWER CHAIR. PT'S MEDICAL EQUIPMENT PROVIDER IS [facility]. PT HAS NO OUTSIDE SERVICES ASSISTING IN THE HOME. CM DISCUSSED AVAILABILITY OF HOME HEALTH, REHAB SERVICES AND MEDICAL EQUIPMENT. PT REPORTS NEEDING A WALKER WITH WHEELS SEAT AND BRAKES WELL BEDSIDE COMMODE TO USE AT NIGHT AND DUE TO DIZZINESS EVERY DAY. PT REPORTS HER FAMILY WILL PICK HER UP FOR DISCHARGE HOME. MEDICAL EQUIPMENT CHOICE SIGNED FOR [facility], PT STATES THEY WILL WELLNESS MANAGER THE EQUIPMENT AT [facility]. CM CALLED [facility], , LEFT MESSAGE ON MACHINE THEY WERE NOT ANSWERING PHONE. CM FAXED ORDERS TO [facility] AT [phone]. JACQUES VIRGEN, CASE MANAGEMENT DCPIA - Discharge Planning Initial Assessment Updated by [email or web address]: Jacques Virgen on 01/02/19 12:53 pm * Is the patient Alert and Oriented? Yes * How many steps to enter\exit or inside your home? 20-0 / 0-I * PCP DR. PINO * Pharmacy [facility] [address] * Preadmission Environment Home with Family * ADLs Independent * Equipment Shower Chair Wheelchair * Other Equipment [facility] - [facility] * List name and contact numbers for known caregivers / representatives who currently or will assist patient after discharge: RACHAEL LYON, DTR, JYOTHI ESTEFANIA, SPOUSE, * Verbal permission to speak to the caregivers and representatives has been obtained from the patient. Yes * Community resources currently utilized None * Please name any agencies selected above. NONE * Additional services required to return to the preadmission environment? No * Can the patient safely return to the preadmission environment? Yes * Has this patient been hospitalized within the prior 30 days at any hospital? No Coverage Notice Reviewer: [email or web address] - Jacques Virgne Notice Issued Date-Time: 01/02/2019 12:35 Notice Type: IM Discharge Notice Notice Delivered To: Patient Relationship to Patient: Press Cutter Name: Delivery Method: HAND - Hand Delivered Claudia Days: Prior Verbal Notification: Recipient Understood Notice: Yes Recipient Signature: Yes Med Rec Note Co-signed by Attending: Coverage Notice Comment: [facility] Last DP export: 01/03/19 3:52 p Patient Name: TIANA MAC Page [id number] at 1700 All edits/amendments must be made on the electronic document DICTATION DATE: 01/03/191658 SERVICE OR WORK DISPATCHER: GOLDIE 01/03/191658 RPT#: [id number] DC DATE:01/02/19 STATUS: DIS IN [facility] [address] [facility] [place] [id number] END OF REPORT
== END 2019-01-02 14:49 | disposition home or self-care (01) | DRG 312 ==
LOC: D.ER 18:52 → D.EDHOLD 23:12 → OBSVTIME 23:12 → D.EDHOLD 23:12 → D.M2 01-01 14:54
PROVIDERS: Family Medicine; ADMIT Internal Medicine Nephrology; ATTEND Internal Medicine Nephrology
DX: R55 Syncope and collapse (principal); G40.909 Epilepsy, unspecified, not intractable, without status epilepticus; I12.9 Hypertensive chronic kidney disease with stage 1 through stage 4 chronic kidney disease, or unspecified chronic kidney disease; N18.9 Chronic kidney disease, unspecified; M32.9 Systemic lupus erythematosus, unspecified; B19.20 Unspecified viral hepatitis C without hepatic coma; K74.60 Unspecified cirrhosis of liver; F32.9 Major depressive disorder, single episode, unspecified; I95.9 Hypotension, unspecified; R00.0 Tachycardia, unspecified; W19.XXXA Unspecified fall, initial encounter; Z86.73 Personal history of transient ischemic attack (TIA), and cerebral infarction without residual deficits; Z95.0 Presence of cardiac pacemaker

== ENCOUNTER 2019-01-30 09:15 | Day surgery (SDC) | payer MEDICAID ==
[~2019-01-30] VITALS: Ht 160 cm; Wt 107.5 kg
[2019-01-30 10:46] VITALS: BP 129/88; Ht 160 cm; Wt 107.5 kg
[2019-01-30 11:29] LABS: BASOPHILS 0.4 % (0-2); EOSINOPHILS 1.3 % (0-7); HEMATOCRIT 35.9 % (36.0-48.0); IMMATURE GRANULOCYTES 0.2 % (0-5); LYMPHOCYTES 24.3 % (15-50); MCH 29.3 pg (26.0-34.0); MCHC 33.4 g/dL (31.0-37.0); MCV 87.6 fL (80.0-100.0); MEAN PLATELET VOLUME 10.9 fL (7.4-10.4); MONOCYTES 5.3 % (2-11); NEUTROPHILS 68.5 % (40-80); PLATELET COUNT 254 10x3/uL (130-400); RDW 13.5 % (11.5-14.5)
[2019-01-30 11:36] LABS: CALC OSMOLALITY 279 mosm/kg (275-300); CALCIUM 8.8 mg/dL (8.5-10.1); CARBON DIOXIDE 25.9 mmol/L (21.0-32.0); CHLORIDE - SERUM 105 mmol/L (98-107); CREATININE - SERUM 0.8 mg/dL (0.6-1.3); GLUCOSE 113 mg/dL (74-106); POTASSIUM - SERUM 3.9 mmol/L (3.5-5.1); SODIUM 140 mmol/L (136-145); UREA NITROGEN 12 mg/dL (7-18); eGFR NON AFRICAN AMERICAN 83 mL/min (90-120)
[2019-01-30 11:38] LABS: APTT 27.1 SECONDS (22.8-39.4); INR 1.02 (0.85-1.17); PROTIME 12.9 SECONDS (11.6-15.0)
[2019-01-30] MEDS ORDERED: HYDROCODON-ACE1 EA10 PO (12:36)
--- NOTE | 2019-01-30 14:06 | NUR ---
PATIENT AMBULATING AROUND ROOM WITHOUT DIZZINESS. LEFT CHEST PIV DC'D WITH TIP INTACT. DISCHARGE INSTRUCTIONS REVIEWED WITH PATIENT AND DAUGHTER. POWER PORT PATIENT GUIDE, IMPLANT CARD AND SCOTT NEEDLE GIVEN TO PATIENT ALONG WITH DISCHARGE INSTRUCTIONS. PATIENT DRESSING IN PERSONAL CLOTHING WITH DAUGHTER'S ASSISTANCE 1410 DISCHARGED HOME VIA WHEELCHAIR TO PRIVATE VEHICLE WITH DAUGHTER
--- NOTE | 2019-01-30 16:09 | OP ---
PATIENT NAME: TIANA MAC MEDICAL RECORD: [id number] :[birth year] LOCATION:[facility] ADMISSION DATE: SURGEON: TOMMY BENTON MD DATE OF OPERATION: 01/30/2019 PREOPERATIVE DIAGNOSES: 1. Poor venous access. 2. Morbid obesity with a BMI of 42. 3. Lupus. 4. Chronic hep C. 5. Coronary artery disease with in situ pacemaker. POSTOPERATIVE DIAGNOSES: 1. Poor venous access. 2. Morbid obesity with a BMI of 42. 3. Lupus. 4. Chronic hep C. 5. Coronary artery disease with in situ pacemaker. PROCEDURE: 1. Right subclavian vein PowerPort placement. 2. Fluoroscopic interpretation. SURGEON: Tommy Benton MD REPORT OF PROCEDURE: The patient's right chest was prepped and draped in sterile fashion. A needle was used to cannulate the right internal jugular vein and a guidewire was advanced with ease. Fluoro was used to note that the wire was in good position in the venous system. A skin incision was made on the right superolateral chest and a subcutaneous pouch was made over the pectoral fascia. The catheter was tunneled between this pouch and the wire exit site. The catheter was then cut with a beveled tip at 25 cm. The dilator trocar device was placed over the wire and the wire and dilator were removed. The catheter tip was advanced through the trocar and the trocar was then removed. The catheter tip was noted to be resting in good position at the right atrial superior vena caval junction. The catheter aspirated nonpulsatile dark blood and flushed easily with heparinized saline. This was sutured to the pectoral fascia using interrupted 2-0 Prolenes times 2. The wound was then irrigated out with normal saline. The subcutaneous tissues were reapproximated with interrupted 3-0 Vicryl and the skin was closed with running subcutaneous 5-0 Monocryl. COMPLICATIONS: None. CONDITION: Stable. ANESTHESIA: General endotracheal. BLOOD LOSS: Minimal. TRANSINT:[id number] Voice Confirmation ID: [id number] DOCUMENT ID: [id number] OPERATIVE REPORT [id number] TIANA MAC TOMMY BENTON MD at 1609 CC: GIANCARLO PINO [id number] DICTATION DATE: 01/30/19 1240 FIREARMS ASSEMBLY SUPERVISOR: 01/30/19 1312 [facility] [address] [place]
== END 2019-01-30 14:10 | disposition home or self-care (01) ==
LOC: D.OPS 09:15 → D.PAN 11:30 → D.OPS 11:30
PROVIDERS: Anesthesiology; ATTEND Surgery
DX: I87.2 Venous insufficiency (chronic) (peripheral) (principal); E66.01 Morbid (severe) obesity due to excess calories; Z68.41 Body mass index [BMI] 40.0-44.9, adult; M32.9 Systemic lupus erythematosus, unspecified; B18.2 Chronic viral hepatitis C; Z95.0 Presence of cardiac pacemaker; Z01.812 Encounter for preprocedural laboratory examination; I25.10 Atherosclerotic heart disease of native coronary artery without angina pectoris

== ENCOUNTER 2019-02-08 12:02 | Emergency (ER) | payer MEDICAID ==
[~2019-02-08] VITALS: Ht 160 cm; Wt 105.9 kg
[~2019-02-08 12:02] MED LIST changes: +HYDROCODON-ACE1 EA10 PO
[2019-02-08 12:08] VITALS: Ht 160 cm; Wt 105.9 kg
[2019-02-08 12:30] LABS: APPEARANCE CLEAR (CLEAR); COLOR YELLOW (YELLOW)
[2019-02-08 12:31] LABS: BILIRUBIN NEGATIVE (NEGATIVE); GLUCOSE NEGATIVE (NEGATIVE); KETONE NEGATIVE (NEGATIVE); NITRITE NEGATIVE (NEGATIVE); PROTEIN NEGATIVE (NEGATIVE); UROBILINOGEN NORMAL (NORMAL)
[2019-02-08 13:44] LABS: BASOPHILS 0.2 % (0-2); EOSINOPHILS 1.6 % (0-7); HEMATOCRIT 39.9 % (36.0-48.0); HEMOGLOBIN 13.3 g/dL (12-16); IMMATURE GRANULOCYTES 0.2 % (0-5); LYMPHOCYTES 20.8 % (15-50); MCH 29.2 pg (26.0-34.0); MCHC 33.3 g/dL (31.0-37.0); MCV 87.5 fL (80.0-100.0); MEAN PLATELET VOLUME 10.3 fL (7.4-10.4); MONOCYTES 5.6 % (2-11); NEUTROPHILS 71.6 % (40-80); PLATELET COUNT 288 10x3/uL (130-400); RBC 4.56 10x6/uL (4.00-5.40); RDW 13.4 % (11.5-14.5); WBC 12.5 10x3/uL (4.8-10.8)
[2019-02-08 13:58] LABS: ALBUMIN 3.5 g/dL (3.4-5.0); ALKALINE PHOSPHATASE 106 U/L (46-116); ALT (SGPT) 29 U/L (10-68); BILIRUBIN - TOTAL 0.35 mg/dL (0.2-1.3); CALC OSMOLALITY 279 mosm/kg (275-300); CALCIUM 8.9 mg/dL (8.5-10.1); CARBON DIOXIDE 27.3 mmol/L (21.0-32.0); CHLORIDE - SERUM 104 mmol/L (98-107); CREATININE - SERUM 1.2 mg/dL (0.6-1.3); GLUCOSE 101 mg/dL (74-106); POTASSIUM - SERUM 3.3 mmol/L (3.5-5.1); PROTEIN - SERUM 8.2 g/dL (6.4-8.2); SODIUM 141 mmol/L (136-145); UREA NITROGEN 9 mg/dL (7-18); eGFR NON AFRICAN AMERICAN 52 mL/min (90-120)
[2019-02-08 14:03] LABS: AMYLASE - SERUM 41 U/L (25-115); LIPASE 117 U/L (73-393)
[2019-02-08 14:06] LABS: TROPONIN-I < 0.017 ng/mL (0.000-0.060)
[2019-02-08 14:07] LABS: VALPROIC ACID (DEPAKOTE) < 3.0 ug/mL (50.0-100.0)
[2019-02-08] MEDS ORDERED: HYDROCODON-ACE1 EAC2 PO (14:17)
[2019-02-08] MEDS ORDERED: PHENERGAN25 M1 PO (14:17)
[2019-02-08] MEDS ORDERED: IMODIUM2 MG PO (14:17)
[2019-02-08 14:56] VITALS: BP 123/82
== END 2019-02-08 14:57 | disposition home or self-care (01) ==
LOC: D.ER 12:02
PROVIDERS: Emergency Medicine
DX: R11.2 Nausea with vomiting, unspecified (principal)

== ENCOUNTER → 2019-02-19 07:50 | Outpatient (CLI) | payer MEDICAID ==
[2019-02-08 12:08] VITALS: BMI 41.3
[~2019-02-19 07:50] MED LIST changes: +HYDROCODON-ACE1 EAC2 PO; +IMODIUM2 MG PO; +PHENERGAN25 M1 PO
[2019-02-20 14:11] LABS: HEPATITIS C ANTIBODY >11.0 S/CO RAT (0.0-0.9)
[2019-02-23 09:07] LABS: HCVGENO - HEP C QUANT 4250000 IU/mL (()); HCVGENO - LOG 10 6.628 (())
== END | disposition home or self-care (01) ==
LOC: D.US 07:50
PROVIDERS: ATTEND Internal Medicine Gastroenterology
DX: R10.30 Lower abdominal pain, unspecified (principal); R11.0 Nausea; R19.7 Diarrhea, unspecified

== ENCOUNTER 2019-02-26 21:59 | Inpatient (IN) | payer MEDICAID ==
[~2019-02-26] VITALS: Ht 160 cm; Wt 113.6 kg
[2019-02-27] VITALS (7 sets, daily range): BP systolic 138–162; BP diastolic 76–108; Ht 160 cm; Wt 113.6 kg
[2019-02-27 01:10] LABS: BASOPHILS 0.2 % (0-2); EOSINOPHILS 1.2 % (0-7); HEMATOCRIT 36.7 % (36.0-48.0); HEMOGLOBIN 12.2 g/dL (12-16); IMMATURE GRANULOCYTES 0.5 % (0-5); LYMPHOCYTES 30.8 % (15-50); MCH 29.8 pg (26.0-34.0); MCHC 33.2 g/dL (31.0-37.0); MCV 89.5 fL (80.0-100.0); MONOCYTES 6.4 % (2-11); NEUTROPHILS 60.9 % (40-80); PLATELET COUNT 247 10x3/uL (130-400); RDW 14.5 % (11.5-14.5)
[2019-02-27 01:21] LABS: ALBUMIN 3.2 g/dL (3.4-5.0); ANION GAP 15.6 mmol/L (8-16); BILIRUBIN - TOTAL 0.22 mg/dL (0.2-1.3); CALCIUM 8.4 mg/dL (8.5-10.1); CARBON DIOXIDE 23.9 mmol/L (21.0-32.0); POTASSIUM - SERUM 3.5 mmol/L (3.5-5.1); PROTEIN - SERUM 7.4 g/dL (6.4-8.2)
--- NOTE | 2019-02-27 01:47 | NUR ---
URINE SAMPLE COLLECTED VIA CLEAN CATCH AND SENT TO LAB.
[2019-02-27 01:56] LABS: APPEARANCE CLEAR (CLEAR); BILIRUBIN NEGATIVE (NEGATIVE); COLOR YELLOW (YELLOW); GLUCOSE NEGATIVE (NEGATIVE); KETONE NEGATIVE (NEGATIVE); NITRITE NEGATIVE (NEGATIVE); PROTEIN NEGATIVE (NEGATIVE); SPECIFIC GRAVITY 1.005 (1.005-1.020); UROBILINOGEN NORMAL (NORMAL)
--- NOTE | 2019-02-27 07:10 | NUR ---
REPORT RECEIVED FROM THORACIC MEDICINE PHYSICIAN AND PATIENT CARE ASSUMED . PATIENT SITTING UP IN BED AWAKE, ALERT AND ORIENTED X 4. PATIENT HAS MORPHINE DIRECTOR OF FLIGHT OPERATIONS PUMP GOING AND ZOFRAN DRIP AT 4.7. PATIENT IS STABLE AND VSS. PATIENT DENIES ANY NEEDS OR PAIN. WILL CONTINUE WITH PLAN OF CARE. SR UP X 2 BED IN LOW POSITION AND CALL LIGHT IN REACH.
[2019-02-27 14:50] LABS: ERYTHROCYTE SEDIMENTATION RATE 2 mm/hr (0-20)
[2019-02-27 15:23] LABS: APPEARANCE - CSF CLEAR
[2019-02-27 15:24] LABS: RBC - CSF 1 cmm (0-0)
[2019-02-27 15:52] LABS: PROTEIN - CSF 34 MG/DL (12-60)
[2019-02-27 15:58] LABS: GLUCOSE - CSF 94 MG/DL (40-75)
--- NOTE | 2019-02-27 18:06 | NUR ---
PATIENT LAYING IN BED ON BACK WITH HOB ELEVATED AT 30 DEGREES. PATIENT IS STABLE AND VSS. PATIENT DENIES ANY NEEDS OR PAIN. FRIEND AT BS. WILL CONTINUE WITH PLAN OF CARE. SR UP X 2 BED IN LOW POSITION AND CALL LIGHT IN REACH.
--- NOTE | 2019-02-27 18:10 | NUR ---
ORDER RECEIVED FOR LUMBAR PUNCTURE. CONSENT OBTAINED AND SIGNED. PATIENT IS STABLE AND VSS. PATIENT TO PROCEDURE ROOM VIA HOPSITAL BED AND HOSPITAL PERSONNEL.
--- NOTE | 2019-02-27 18:11 | NUR ---
PATIENT RETURNED FROM LUMBAR PUNCTURE VIA HOSPITAL BED AND HOPITAL PERSONNEL. PATIENT IS STABLE AND VSS. PATIENT TO LAY ON BACK WITH HOB ELEVATED AT 30 FOR 4-6 HOURS. WILL CONTINUE TO MONITOR. SR UP X 2 BED IN LOW POSTION AND CALL LIGHT IN REACH. FRIEND AT BS.
--- NOTE | 2019-02-27 21:30 | NUR ---
LAB SHOWS CDT SPECIMEN NEEDED ON PT. COLLECTED SOLID STOOL FROM PT. LAB REJECTED CITING SPECIMEN TO SOLID. SPOKE WITH TONI.
[2019-02-28] VITALS (7 sets, daily range): BP systolic 86–166; BP diastolic 58–98
--- NOTE | 2019-02-28 01:10 | NUR ---
PT ACCIDENTLY WET BED. CHANGED BED AND GOWN. NO OTHER NEEDS. HUNG NEW FLUIDS AND ZOFRAN. NO OTHER NEEDS. WILL REASSESS AND CONTINUE TO MONITOR.
[2019-02-28 06:50] LABS: ALBUMIN 2.7 g/dL (3.4-5.0); ALKALINE PHOSPHATASE 102 U/L (46-116); BILIRUBIN - TOTAL 0.33 mg/dL (0.2-1.3); CALC OSMOLALITY 277 mosm/kg (275-300); CALCIUM 7.9 mg/dL (8.5-10.1); CARBON DIOXIDE 28.2 mmol/L (21.0-32.0); CHLORIDE - SERUM 105 mmol/L (98-107); GLUCOSE 123 mg/dL (74-106); POTASSIUM - SERUM 3.7 mmol/L (3.5-5.1); PROTEIN - SERUM 6.4 g/dL (6.4-8.2); SODIUM 140 mmol/L (136-145); UREA NITROGEN 8 mg/dL (7-18)
[2019-02-28 06:51] LABS: ALT (SGPT) 87 U/L (10-68); CREATININE - SERUM 0.7 mg/dL (0.6-1.3); eGFR NON AFRICAN AMERICAN > 90 mL/min (90-120)
[2019-02-28 07:01] LABS: BASOPHILS 0.1 % (0-2); EOSINOPHILS 0 % (0-7); HEMATOCRIT 32.1 % (36.0-48.0); HEMOGLOBIN 10.3 g/dL (12-16); IMMATURE GRANULOCYTES 0.5 % (0-5); LYMPHOCYTES 23.3 % (15-50); MCH 29.4 pg (26.0-34.0); MCHC 32.1 g/dL (31.0-37.0); MEAN PLATELET VOLUME 11.2 fL (7.4-10.4); MONOCYTES 4.7 % (2-11); NEUTROPHILS 71.4 % (40-80); PLATELET COUNT 237 10x3/uL (130-400); RDW 14.7 % (11.5-14.5)
[2019-02-28 07:09] LABS: MCV 91.7 fL (80.0-100.0); WBC 8.9 10x3/uL (4.8-10.8)
--- NOTE | 2019-02-28 07:10 | NUR ---
REPORT RECIEVED FROM PROPAGATION MANAGER AND PATIENT CARE ASSUMED. PATIENT LAYING IN BED ON RT SIDE WITH EYES CLOSED AND BREATHING EVENLY. VSS. WILL CONTINUE WITH PLAN OF CARE. SR UP X 2 BED IN LOW POSITION AND CALL LIGHT IN REACH.
--- NOTE | 2019-02-28 09:00 | NUR ---
CALLED TO PATIENTS ROOM. PATIENT SITTING UP IN BED HOLDING HEAD IN HANDS CRYING AND WRITHING IN PAIN. PATIENT STATES SHE HAS A SEVERE HEADACHE THAT STARTED SUDDENLY. CONPLIANS OF NECK STIFFNESS AND DIZZINESS. DENIES NAUSEA OR PHOTOPHOBIA. VSS. CALLED RINA BLANCA. INFORMED OF SITUATION AND GLUCOSE OF 194 IN CSF. NEW ORDER RECEIVED FOR DILAUDED 1MG AND STAT CT OF HEAD. ORDERS COMPLETED AND DILAUDED GIVEN. VSS. WILL CONTINUE TO MONITOR.
--- NOTE | 2019-02-28 09:30 | NUR ---
PATIENT STATES PAIN IS NOW A [address] VIA HOPSITAL BED AND HOSPITAL PERSONNEL.
--- NOTE | 2019-02-28 10:15 | NUR ---
PATIENT RETURNED FROM CT VIA HOSPITAL BED AND HOSPITAL PERSONNEL. PATIENT STATES FEELS BETTER. WILL CONTINUE TO MONIOTR. SR UP X 2 BED IN LOW POSTION AND CALL LIGHT IN REACH.
--- NOTE | 2019-02-28 15:09 | NUR ---
REMINDED PATIENT THAT A STOL SPECIMEN IS NEEDED. PATIENT HAS NOT HAD A BM YET. WILL CONTINUE TO MONITOR.
[2019-02-28 15:13] LABS: FUNGUS STAIN Final report (())
[2019-02-28 19:21] LABS: ERYTHROCYTE SEDIMENTATION RATE 10 mm/hr (0-20)
--- NOTE | 2019-02-28 19:30 | NUR ---
SITTING UP IN BED HOLDING HEAD AND CRYING STATES NECK HUTING BAD REQUESTING PAIN MED, DILAUDID GIVEN ORDERED, SEE ASSESSMENT, CALL LIGHT IN REACH
--- NOTE | 2019-02-28 20:40 | NUR ---
LOW BP REPORTED BY TECH, 86/56,PT SITTING UP IN BED ALERT AND ORIENTIATED DENIES DIZZINESS, LIGHTHEADNESS, INSTRUCTED TO CALL BEFORE GETTING UP, AND TO TRY TO LAY FLAT POSSIABLE, HEAD OF BED LOWERED WILL MONITOR
--- NOTE | 2019-02-28 20:45 | NUR ---
BP RECHECKED WITH PT LYING FLAT IN BED 96/60, CONTINUES TO DENIE SYMPTOMS, CALL LIGHT IN REACH
--- NOTE | 2019-02-28 22:50 | NUR ---
BP RECHECKED 90/59, AROUSED FROM SLEEP, DENIES SYMPTOMS
--- NOTE | 2019-02-28 23:59 | NUR ---
SITTING UP IN BED ASKING ABOUT WHEN CAN HAVE PAIN MEDICATION AGAIN, INFORMED THAT COULD NOT GIVE MORE PAIN MEDICATION UNTIL BLOOD PRESSURE UP TO NORMAL RANGE FOR HER, DEPAKOTE GIVEN AT THIS TIME, REMAINING PM SCHEDULED HELD DUE TO LOW BP, FAMILY MEMBER AT BEDSIDE
[2019-03-01 00:06] VITALS: BP 98/67
[2019-03-01 04:27] VITALS: BP 96/73
[2019-03-01 05:23] LABS: BASOPHILS 0.2 % (0-2); EOSINOPHILS 0.7 % (0-7); HEMOGLOBIN 10.2 g/dL (12-16); IMMATURE GRANULOCYTES 0.5 % (0-5); LYMPHOCYTES 40.2 % (15-50); MCH 29.2 pg (26.0-34.0); MCHC 31.9 g/dL (31.0-37.0); MCV 91.7 fL (80.0-100.0); MEAN PLATELET VOLUME 11.1 fL (7.4-10.4); MONOCYTES 6.5 % (2-11); NEUTROPHILS 51.9 % (40-80); PLATELET COUNT 221 10x3/uL (130-400); RBC 3.49 10x6/uL (4.00-5.40); RDW 14.7 % (11.5-14.5); WBC 8.1 10x3/uL (4.8-10.8)
[2019-03-01 05:32] LABS: ANION GAP 12.7 mmol/L (8-16); CALCIUM 7.5 mg/dL (8.5-10.1); CARBON DIOXIDE 26.5 mmol/L (21.0-32.0); POTASSIUM - SERUM 3.2 mmol/L (3.5-5.1)
[2019-03-01 05:33] LABS: CREATININE - SERUM 0.9 mg/dL (0.6-1.3)
[2019-03-01 07:41] VITALS: BP 137/87
--- NOTE | 2019-03-01 08:00 | NUR ---
A/A/OX4 SITTING UP IN BED PLAYING GAMES ON PHONE. ASKING ABOUT HER PAIN MED, STATES HER PAIN IS A NINE AT THE PRESENT TIME AND WANTS THE DILAUDID. EXPLAINED TO HER I WAS CONCERNED ABOUT GIVING THAT DUE TO THE DROP IN B/P SHE HAD LAST NIGHT WITH IT. PT STATES SHE UNDERSTANDS BUT DOES NOT WANT THE HYDROCODONE. WANTING TO KNOW IF SHE CAN HAVE MORPHINE. TOLD HER I WOULD CONTACT EVENT ATTENDANT AND SEE WHAT THE DRWilly WANTS. DENIES ANY NAUSEA OR VOMITING AND NO OTHER REQUESTS VOICED. HAS SOME REDNESS AND ONE BLISTER UNDER TEGADERM, IT WAS REMOVED AND PORT COVERED WITH 2X2S AMD TAPED WITH PAPER TAPE. ASSESSMENT COMPLETED AND WILL CONTINUE PLAN OF CARE.
--- NOTE | 2019-03-01 09:45 | NUR ---
CONTACTED [facility] [employer] [facility] AND INFORMED OF PROBLEM WITH PTS B/P LAST NIGHT WITH 2 MG DILAUDID. ORDER RECEIVED TO DECREASE TO 1 MG. PT INFORMED AND STATES SHE THINKS SHE NEEDS TO 2 MG BECAUSE THE 1 MG DOESNT REALLY HELP HER PAIN.
[2019-03-01 12:03] VITALS: BP 139/89
--- NOTE | 2019-03-01 13:12 | NUR ---
I DISAGREE WITH NURSE ASSESSMENT. ZOFRAN IS INFUSING AT 4.2 CC/HR.
--- NOTE | 2019-03-01 13:41 | NUR ---
DISCHARGE INSTRUCTIONS REVIEWED WITH PT AND VERBALIZES UNDERSTANDING WITH NO QUESTIONS ASKED. IV DC'D FROM PORT. PRICING CLERK REMOVED. LEFT FLOOR VIA W/C WITH ALL PERSONAL BELONGINGS AND LEFT FACILITY VIA PRIVATE VEHICLE WITH HER DAUGHTER.
--- NOTE | 2019-03-01 18:57 | MORECARE ---
CASE MANAGEMENT DISCHARGE SUMMARY PATIENT: TIANA MAC UNIT: [id number] ADM DATE: 02/27/19 AGE: 43 : 75 SEX: F ROOM/BED: D.2102 AUTHOR: TATYANA BAEZ PHYSICIAN: REFERRING PHYSICIAN: JOEY AREVALO MD DATE OF SERVICE: 03/01/19 Discharge Plan Patient Name: [facility]IANA MAC [facility] [facility] 1975 Planned Disposition: Home Anticipated Discharge Date: 03/01/19 Discharge Date: 03/01/2019 Expected LOS: 2 Initial Reviewer: [id number] Initial Review Date: 02/27/2019 Generated: 03/01/19 7:56 pm Patient Name: TIANA MAC Page [phone] at 1857 All edits/amendments must be made on the electronic document DICTATION DATE: 03/01/191855 REPORTING PROCESS CONSULTANT: GOLDIE 03/01/191855 RPT#: [id number] DC DATE:03/01/19 STATUS: DIS IN [facility] [address] [place] [address] END OF REPORT
[2019-03-02 15:09] LABS: HSV 1 DNA (PCR) Negative (Negative); HSV 2 DNA (PCR) Negative (Negative)
== END 2019-03-01 14:16 | disposition home or self-care (01) | DRG 552 ==
LOC: D.ER 21:59 → OBSVTIME 02-27 01:58 → D.M2 02-27 01:58
PROVIDERS: Family Medicine; ADMIT Internal Medicine Nephrology; ATTEND Internal Medicine Nephrology
PROC: 009U3ZZ Drainage of Spinal Canal, Percutaneous Approach (ICD-10-PCS; principal; 2019-02-27)
PROC: B01B1ZZ Fluoroscopy of Spinal Cord using Low Osmolar Contrast (ICD-10-PCS; 2019-02-27)
DX: M54.2 Cervicalgia (principal); Z68.41 Body mass index [BMI] 40.0-44.9, adult; I10 Essential (primary) hypertension; R51 Headache; G40.909 Epilepsy, unspecified, not intractable, without status epilepticus; M32.9 Systemic lupus erythematosus, unspecified; B19.20 Unspecified viral hepatitis C without hepatic coma; F32.9 Major depressive disorder, single episode, unspecified; K74.60 Unspecified cirrhosis of liver; E66.01 Morbid (severe) obesity due to excess calories; Z95.0 Presence of cardiac pacemaker; Z86.73 Personal history of transient ischemic attack (TIA), and cerebral infarction without residual deficits

== ENCOUNTER 2019-05-25 19:08 | Emergency (ER) | payer SELFPAY ==
[~2019-05-25] VITALS: Ht 160 cm; Wt 133.2 kg
[2019-05-25 19:14] VITALS: Ht 160 cm; Wt 133.2 kg
[2019-05-25 19:25] LABS: APPEARANCE CLEAR (CLEAR); COLOR STRAW (YELLOW); SPECIFIC GRAVITY 1.005 (1.005-1.020)
[2019-05-25 19:26] LABS: BILIRUBIN NEGATIVE (NEGATIVE); GLUCOSE NEGATIVE (NEGATIVE); KETONE NEGATIVE (NEGATIVE); NITRITE NEGATIVE (NEGATIVE); PROTEIN NEGATIVE (NEGATIVE); UROBILINOGEN NORMAL (NORMAL)
[2019-05-25 19:28] LABS: BACTERIA FEW /hpf (NONE SEEN); EPITHELIAL CELLS 0-5 /hpf (0-5); RED CELLS - URINE RARE /hpf (0-5); WHITE CELLS - URINE OCC /hpf (0-5)
[2019-05-25] MEDS ORDERED: CYCLOBENZAPRINE10 MG PO (20:06)
[2019-05-25] MEDS ORDERED: IBUPROFEN800 MG PO (20:06)
[2019-05-25 21:10] VITALS: BP 133/85
== END 2019-05-25 21:10 | disposition home or self-care (01) ==
LOC: D.ER 19:08
PROVIDERS: Emergency Medicine
DX: R10.9 Unspecified abdominal pain (principal)

== ENCOUNTER → 2019-09-09 13:47 | Outpatient (CLI) | payer MEDICAID ==
[2019-05-25 19:14] VITALS: BMI 52.0
[~2019-09-09 13:47] MED LIST changes: +CYCLOBENZAPRINE10 MG PO; +IBUPROFEN800 MG PO
== END | disposition home or self-care (01) ==
LOC: D.RAD 09-05 14:00 → D.CT 13:47
PROVIDERS: ATTEND Clinical Nurse Specialist Family Health
DX: M25.561 Pain in right knee (principal)

== ENCOUNTER 2019-09-25 08:22 | Day surgery (SDC) | payer MEDICAID ==
--- NOTE | 2019-09-23 14:04 | NUR ---
OK to access port per Dr. Hoffman.
[~2019-09-25] VITALS: Ht 160 cm; Wt 108.0 kg
[~2019-09-25 08:22] MED LIST changes: +LEXAPRO10 MG PO; +REGLAN10 MG PO; +SEROQUEL400 MG PO
[2019-09-25 09:40] VITALS: BP 119/84; Ht 160 cm; Wt 108.0 kg
--- NOTE | 2019-09-25 10:23 | NUR ---
DR. HOPKINS NOTIFIED AND REVIEWED PT'S BEHAVIOR AND ASSESSMENT RESULTS. PT IS A LOW RISK PER DR. HOPKINS. DR. HOPKINS STATED TO GIVE RESOURCES TO PT AT TIME OF DISCHARGE. NO FURTHER ORDERS AT THIS TIME. RESOURCES REVIEWED WITH PT AND SHE VERBALIZIED UNDERSTANDING.
[2019-09-25 10:53] LABS: APTT 29.4 SECONDS (22.8-39.4); INR 1.08 (0.85-1.17); PROTIME 13.5 SECONDS (11.6-15.0)
[2019-09-25 10:58] LABS: ALBUMIN 3.3 g/dL (3.4-5.0); ANION GAP 14.5 mmol/L (8-16); BILIRUBIN - TOTAL 0.4 mg/dL (0.2-1.3); CALCIUM 8.9 mg/dL (8.5-10.1); CARBON DIOXIDE 26.9 mmol/L (21.0-32.0); POTASSIUM - SERUM 3.4 mmol/L (3.5-5.1); PROTEIN - SERUM 7.5 g/dL (6.4-8.2)
[2019-09-25 11:28] LABS: HEMATOCRIT 36.3 % (36.0-48.0); HEMOGLOBIN 12.3 g/dL (12-16); MCH 31.2 pg (26.0-34.0); MCHC 33.9 g/dL (31.0-37.0); MCV 92.1 fL (80.0-100.0); MEAN PLATELET VOLUME 10.6 fL (7.4-10.4); RBC 3.94 10x6/uL (4.00-5.40); RDW 14.2 % (11.5-14.5); WBC 6.5 10x3/uL (4.8-10.8)
[2019-09-25] MEDS ORDERED: PERCOCET 10-321 EAC1 PO (13:09)
--- NOTE | 2019-09-26 10:43 | OP ---
PATIENT NAME: TIANA MAC MEDICAL RECORD: [id number] :75 LOCATION:[facility] ADMISSION DATE: SURGEON: HARRISON YOUSIF MD DATE OF OPERATION: 09/25/2019 PREOPERATIVE DIAGNOSIS: Recalcitrant medial shelf plica of the left knee. POSTOPERATIVE DIAGNOSIS: Recalcitrant medial shelf plica of the left knee. PROCEDURE: Arthroscopic plica excision, left knee. SURGEON: Harrison Yousif MD ANESTHESIA: General. INTRAOPERATIVE COMPLICATIONS: None. SUMMARY OF PATHOLOGIC FINDINGS: The patient had a very large plica on the medial shelf, small one on the lateral shelf was removed as well, but clearly the problematic plica synovial medial side. OPERATIVE SUMMARY IN DETAIL: After obtaining the appropriate preoperative orthopedic surgery consent as well as anesthetic consultation, evaluation, and clearance, the patient was brought to the operating room and placed on the operating room and placed on operating table in supine position. After general laryngeal mask airway was administered, tourniquet was placed on the proximal aspect of the left lower extremity. Left lower extremity was then prepped and draped in routine sterile fashion. Appropriate timeout was taken and agreed upon by all. The leg was elevated and exsanguinated. Tourniquet inflated to 350 mmHg. Routine inferolateral portal was established followed by superomedial portal and inferomedial portal. Diagnostic arthroscopy did reveal the above findings. The plica was excised in its entirety back to the capsule using the arthroscopic 4.0 resector. Medial view was established and a small lateral shelf plica likewise was excised. The compartments had essentially no arthritis and the menisci were pristine. Having completed this, the knee was insufflated with 30 cc of 0.25% Marcaine with epinephrine and 80 mg of Depo-Medrol. Arthroscopy portals were closed in routine interrupted fashion using 4-0 Prolene. Sterile dressings were applied. The patient was awakened and taken to recovery room in stable condition. All final needle and sponge counts were correct. TRANSINT:[id number] Voice Confirmation ID: [id number] DOCUMENT ID: [id number] BENJA MEDINA, HARRISON MONTERO at 1043 CC: [id number] DICTATION DATE: 09/25/19 1312 LAW ENFORCEMENT DIRECTOR: 09/25/19 [id number] DEP SD 09/25/19 [facility] [address] [place] [address]
== END 2019-09-25 15:40 | disposition home or self-care (01) ==
LOC: D.OPS 08:22 → D.PAN 08:22 → D.OPS 15:40 → D.PAN 16:15
PROVIDERS: Anesthesiology; ATTEND Orthopaedic Surgery
DX: M67.52 Plica syndrome, left knee (principal); I25.2 Old myocardial infarction; Z86.73 Personal history of transient ischemic attack (TIA), and cerebral infarction without residual deficits; Z95.0 Presence of cardiac pacemaker; R00.1 Bradycardia, unspecified

== ENCOUNTER 2019-10-12 18:19 | Emergency (ER) | payer MEDICAID ==
[~2019-10-12] VITALS: Ht 160 cm; Wt 97.7 kg
[~2019-10-12 18:19] MED LIST changes: +PERCOCET 10-321 EAC1 PO
[2019-10-12 18:29] VITALS: Ht 160 cm; Wt 97.7 kg
[2019-10-12 19:10] LABS: BASOPHILS 0.2 % (0-2); EOSINOPHILS 1.7 % (0-7); HEMATOCRIT 33.7 % (36.0-48.0); HEMOGLOBIN 10.9 g/dL (12-16); IMMATURE GRANULOCYTES 0.4 % (0-5); LYMPHOCYTES 39.1 % (15-50); MCHC 32.3 g/dL (31.0-37.0); MCV 95.7 fL (80.0-100.0); MEAN PLATELET VOLUME 9.9 fL (7.4-10.4); MONOCYTES 11.6 % (2-11); PLATELET COUNT 224 10x3/uL (130-400); RBC 3.52 10x6/uL (4.00-5.40); RDW 15.6 % (11.5-14.5); WBC 5.2 10x3/uL (4.8-10.8)
[2019-10-12 19:21] LABS: APPEARANCE CLEAR (CLEAR); BILIRUBIN NEGATIVE (NEGATIVE); COLOR YELLOW (YELLOW); GLUCOSE NEGATIVE (NEGATIVE); KETONE NEGATIVE (NEGATIVE); NITRITE NEGATIVE (NEGATIVE); PROTEIN NEGATIVE (NEGATIVE); SPECIFIC GRAVITY 1.005 (1.005-1.020)
[2019-10-12 19:22] LABS: INR 1.02 (0.85-1.17); PROTIME 13.3 SECONDS (11.6-15.0)
[2019-10-12 19:23] LABS: APTT 40.3 SECONDS (22.8-39.4)
[2019-10-12 19:23] LABS: BACTERIA FEW /hpf (NEGATIVE); EPITHELIAL CELLS 0-5 /hpf (0-5); RED CELLS - URINE 0-5 /hpf (0-5); WHITE CELLS - URINE 0-5 /hpf (NEGATIVE)
[2019-10-12 19:26] LABS: CALC OSMOLALITY 278 mosm/kg (275-300); CALCIUM 8.4 mg/dL (8.5-10.1); CARBON DIOXIDE 31.9 mmol/L (21.0-32.0); CHLORIDE - SERUM 103 mmol/L (98-107); GLUCOSE 95 mg/dL (74-106); POTASSIUM - SERUM 3.3 mmol/L (3.5-5.1); SODIUM 141 mmol/L (136-145); UREA NITROGEN 8 mg/dL (7-18); eGFR NON AFRICAN AMERICAN 64 mL/min (90-120)
[2019-10-12 19:38] LABS: THYROID STIMULATING HORMONE 4.8 uIU/mL (0.36-3.74)
[2019-10-12 19:54] LABS: ALKALINE PHOSPHATASE 231 U/L (46-116); ALT (SGPT) 25 U/L (10-68); BILIRUBIN - TOTAL 0.48 mg/dL (0.2-1.3); CKMB 0.2 U/L (0.0-3.6); CREATINE KINASE 40 UL (21-215); MAGNESIUM - SERUM 1.8 mg/dL (1.8-2.4); PROTEIN - SERUM 7.1 g/dL (6.4-8.2)
[2019-10-12 19:55] LABS: UDS - AMPHET NEGATIVE QUAL (NEGATIVE); UDS - BARB NEGATIVE QUAL (NEGATIVE); UDS - BENZO POSITIVE QUAL (NEGATIVE); UDS - COCAINE NEGATIVE QUAL (NEGATIVE); UDS - OPIATE POSITIVE QUAL (NEGATIVE); UDS - PCP NEGATIVE QUAL (NEGATIVE); UDS - THC NEGATIVE QUAL (NEGATIVE)
[2019-10-12 19:55] LABS: TROPONIN-I < 0.017 ng/mL (0.000-0.060)
[2019-10-12 21:36] VITALS: BP 121/79
== END 2019-10-12 21:36 | disposition home or self-care (01) ==
LOC: D.ER 18:19
PROVIDERS: Family Medicine
DX: R07.89 Other chest pain (principal); M54.9 Dorsalgia, unspecified; Z95.0 Presence of cardiac pacemaker; I10 Essential (primary) hypertension